=== PATIENT | female | born 1935 | race Caucasian/White ===

== ENCOUNTER → 2017-03-24 | Outpatient (CLI) | payer BC ==
[~2017-03-24] MED LIST: ACET-1311 PO; ASPCH81 PO; FSM70 PO; RSTOPS OP; SIMV20TA2 PO
--- NOTE | 2017-03-26 08:12 | MAMMOGRAPHY REPORT ---
BILATERAL DIGITAL SCREENING MAMMOGRAM TOMOSYNTHESIS WITH CAD: 03/24/2017 CLINICAL HISTORY: Routine screening. Patient has no complaints. TECHNIQUE: Breast tomosynthesis in addition to standard 2D mammography was performed. Current study was also evaluated with a Computer Aided Detection (CAD) system. COMPARISON: Comparison is made to exams dated: 03/23/2016 mammogram, 09/18/2015 ultrasound, 09/18/2015 mammogram, 03/14/2015 mammogram, 02/28/2015 mammogram, and 02/28/2015 ultrasound - [facility]. BREAST COMPOSITION: There are scattered areas of fibroglandular density in both breasts. FINDINGS: There is a possible area of architectural distortion in the lower inner middle one third o f the left breast for which additional spot compression tomosynthesis views and possible ultrasound a re recommended. There are mild vascular calcifications and a few scattered benign punctate and coarse calcifications in the breasts. No other suspicious mass, architectural distortion or cluster of microcalcifications is seen. IMPRESSION: ACR BI-RADS CATEGORY 0: INCOMPLETE EVALUATION: NEED ADDITIONAL IMAGING EVALUATION The possible area of architectural distortion in the lower inner left breast needs additional evaluat ion. The patient will be called to schedule an appointment. Approximately 10% of breast cancers are not detected with mammography. A negative mammographic report should not delay biopsy if a clinically suggestive mass is present. Yasmeen Maddox M.D. ay/:03/24/2017 15:34:56 Hall Supervisor: Melody Arauz, [facility] letter sent: Addl Imaging 0 BI-RADS Code: ACR BI-RADS Category 0: Incomplete Evaluation: Need Additional Imaging Evaluation
== END | disposition home or self-care (01) ==
LOC: C.MAMM 08:15
PROVIDERS: ATTEND Family Medicine
DX: Z12.31 Encounter for screening mammogram for malignant neoplasm of breast (principal)

== ENCOUNTER → 2017-04-06 | Outpatient (CLI) | payer BC ==
--- NOTE | 2017-04-06 14:26 | MAMMOGRAPHY REPORT ---
UNILATERAL LEFT DIGITAL DIAGNOSTIC MAMMOGRAM TOMOSYNTHESIS AND TARGETED LEFT ULTRASOUND: 04/06/2017 CLINICAL HISTORY: 81-year-old woman called back from screening mammography for possible area of archi tectural distortion in the left breast. TECHNIQUE: Spot compression left CC and MLO tomosynthesis images were obtained. COMPARISON: Comparison is made to exams dated: 03/24/2017 mammogram, 03/23/2016 mammogram, 09/18/2015 ultrasound, 09/18/2015 mammogram, 03/14/2015 mammogram, and 02/28/2015 mammogram - [facility]. BREAST COMPOSITION: There are scattered areas of fibroglandular density in the left breast. FINDINGS: The additional spot compression views of the left breast demonstrate no definite persistent architectural distortion in the area of concern based on the screening mammograms. There are multip le linear markings in the middle one third of the left breast along the posterior nipple line and in the medial aspect of the breast near the inferior aspect of the breast based on the tomosynthesis loc alizer bar. However, this is simply thought to represent the patient's tissue pattern, as the appear ance is somewhat similar to the 2016 CC tomosynthesis images. No definite persistent distortion is i dentified on the spot compression MLO tomosynthesis images and the 2-D parenchymal pattern appears si milar to multiple prior 2-D mammograms. Targeted ultrasound was performed throughout the inferior left breast. A small hypoechoic area of sh adowing is identified in the 6:00 left breast, 2 cm from the nipple in the radial plane, which efface s in the anti-radial plane and may simply represent normal fibrocartilage are tissue. No suspicious solid or cystic mass is definitely identified on ultrasound. IMPRESSION: ACR-BI-RADS CATEGORY 3: PROBABLY BENIGN, TARGETED ULTRASOUND ACR-BI-RADS CATEGORY 3: PRO BABLY BENIGN No definite persistent architectural distortion in the middle one third of the left breast, with supp lemental tomosynthesis spot compression views. The area of concern may simply represent overlapping fibrolinear markings. No definite suspicious sonographic correlate. Given the subtle and vague natu re of these findings, a short interval follow-up left diagnostic tomosynthesis mammogram and repeat u ltrasound is recommended to ensure stability in 6 months. These results and recommendations were discussed with the patient at the time of the exam. She tenta tively scheduled a follow-up appointment prior to leaving our department. Approximately 10% of breast cancers are not detected with mammography. A negative mammographic report should not delay biopsy if a clinically suggestive mass is present. Yasmeen Maddox M.D. ay/:04/06/2017 12:29:19 Substance Abuse Prevention Coordinator: Melody Arauz, [facility] letter sent: Follow Up Recommended 3 BI-RADS Code: ACR-BI-RADS Category 3: Probably Benign Ultrasound BI-RADS: ACR-BI-RADS Category 3: Pr obably Benign
== END | disposition home or self-care (01) ==
LOC: C.MAMM 11:17
PROVIDERS: ATTEND Family Medicine
DX: R92.8 Other abnormal and inconclusive findings on diagnostic imaging of breast (principal); N64.89 Other specified disorders of breast

== ENCOUNTER → 2017-04-12 | Outpatient (CLI) | payer BC ==
--- NOTE | 2017-04-12 12:37 | DIAGNOSTIC IMAGING REPORT ---
SOFT TISS HEAD/NECK-THYROID HISTORY: Mass. Nodule. MASS COMPARISON: 05/28/2010 FINDINGS: Ultrasonic evaluation of the left neck and survey fashion is performed at the patient's declared site of clinically palpable nodularity. No evidence for mass or collection based on ultrasound characteristics. No abnormal adenopathy. IMPRESSION: Normal ultrasound of the left neck at the site of stated nodularity. No evidence for nodule mass or collection based on ultrasound criteria. The above report was generated using voice recognition software. It may contain grammatical, syntax or spelling errors. Electronically signed by: Fito Bliss M.D. 04/12/2017 12:36 PM Dictated Date/Time: 04/12/2017 12:34 PM
== END | disposition home or self-care (01) ==
LOC: C.ULTR 12:04
PROVIDERS: ATTEND Family Medicine
DX: R22.1 Localized swelling, mass and lump, neck (principal)

== ENCOUNTER → 2017-05-13 | Outpatient (CLI) | payer BC | END | disposition home or self-care (01) | LOC: C.MAMM 14:58 | PROVIDERS: ATTEND Family Medicine | DX: M81.0 Age-related osteoporosis without current pathological fracture (principal); M85.89 Other specified disorders of bone density and structure, multiple sites ==

== ENCOUNTER 2021-01-29 08:31 | Observation (INO) ==
--- NOTE | 2021-01-07 17:07 | PAT Medication Instructions ---
Medication Instructions Date of Service January 07, 2021 Home Medications alendronate 70 mg tablet 70 mg PO WK ascorbic acid (vitamin C) 1,000 mg tablet (Vitamin C) 1,000 mg PO BID cyclosporine 0.05 % eye drops in a dropperette (Restasis) 1 drp OPHTHALMIC (EYE) Q12H meloxicam 7.5 mg tablet 7.5 mg PO HS multivitamin 1 tab PO QAM simvastatin 20 mg tablet 20 mg PO HS coenzyme Q10 100 mg capsule 100 mg PO QAM amitriptyline 10 mg tablet 10 mg PO HS biotin 5,000 mcg sublingual tablet 5,000 mcg SUBLINGUAL QAM calcium-mag oxide-vitamin D3 250 mg-125 mg-200 unit capsule 1 cap PO QAM cholecalciferol (vitamin D3) 25 mcg (1,000 unit) tablet (Vitamin D3) 25 mcg PO QAM jzjbcnod-dlk-xvzarf 5 mg-zeaxanth 1 mg-bilberry 7.5 mg-herbal capsule (Macular Health Formula) 1 cap PO QAM omega-3s 667 gs-iot-vgy-fish oil-vitamin D3 250 unit capsule (Dry Eye [place] Benefits) 1 cap PO QAM trospium 60 mg capsule,extended release 24 hr 60 mg PO HS zinc 50 mg tablet 50 mg PO QAM Continue as directed alendronate 70 mg tablet 70 mg PO WK (just do not take morning of surgery) ASK your surgeon for instructions meloxicam 7.5 mg tablet 7.5 mg PO HS STOP taking 2 weeks before surgery coenzyme Q10 100 mg capsule 100 mg PO QAM biotin 5,000 mcg sublingual tablet 5,000 mcg SUBLINGUAL QAM zexuquul-zfr-uqdjda 5 mg-zeaxanth 1 mg-bilberry 7.5 mg-herbal capsule (Macular Health Formula) 1 cap PO QAM omega-3s 667 of-lql-bfn-fish oil-vitamin D3 250 unit capsule (Dry Eye [place] Benefits) 1 cap PO QAM DO NOT take the morning of surgery ascorbic acid (vitamin C) 1,000 mg tablet (Vitamin C) 1,000 mg PO BID multivitamin 1 tab PO QAM calcium-mag oxide-vitamin D3 250 mg-125 mg-200 unit capsule 1 cap PO QAM cholecalciferol (vitamin D3) 25 mcg (1,000 unit) tablet (Vitamin D3) 25 mcg PO QAM zinc 50 mg tablet 50 mg PO QAM Take morning of surgery OTHERWISE NOTHING TO EAT OR DRINK AFTER MIDNIGHT: cyclosporine 0.05 % eye drops in a dropperette (Restasis) 1 drp OPHTHALMIC (EYE) Q12H Take evening before surgery ascorbic acid (vitamin C) 1,000 mg tablet (Vitamin C) 1,000 mg PO BID cyclosporine 0.05 % eye drops in a dropperette (Restasis) 1 drp OPHTHALMIC (EYE) Q12H simvastatin 20 mg tablet 20 mg PO HS amitriptyline 10 mg tablet 10 mg PO HS trospium 60 mg capsule,extended release 24 hr 60 mg PO HS Other Notes If you have any questions please call us at [phone] or [phone] or [phone] or [phone]
--- NOTE | 2021-01-09 14:53 | Anesthesiology Consultation ---
Date of Service January 09, 2021 Assessment & Plan (1) Encounter for pre-operative examination: - COVID screening: Per assessment on 01/09: Travel screen negative, no known COVID-19 positive contacts or current COVID-19 related symptoms. Patient vacci nated. Surgeon arranging preop COVID testing. Awaiting results. - S/P Open ventral hernia repair (01/18/20): Grade view 1, MAC#3, ETT 7.0 at [facility] - S/P Right inguinal hernia repair (09/05/20): LMA#4 unique at [facility] Chart Review Chart Review: Acceptable Risk for Surgery (pending surgeon-ordered PCP clearance) and Patient seen in Pre Admission Testing Teaching & Discussion Pre-Anesthesia Teaching/Discussion Notes: Instructed NPO after midnight before surgery,except medications with 15 cc of water. Medication instructions provided according to the PAT guidelines. History Surgery Operation Date: 01/29/21 07:00 Proposed Procedures p Right Total Knee Arthroplasty - Collin Rivera MD Height/Weight Height: 5 ft 3 in Weight: 52.4 kg Allergies Allergy/AdvReac Type Severity Reaction Status Date / Time hydromorphone AdvReac Intermediate "Knocked Verified 01/03/21 15:06 me out" morphine AdvReac Intermediate "Knocked Verified 01/03/21 15:06 me out" Adhesive Tape Allergy Mild Skin Uncoded 01/03/21 15:06 redness Medications Home Medications Medication Instructions Recorded Confirmed Last Taken alendronate 70 mg tablet 70 mg PO WK 12/19/19 01/03/21 09/02/20 07:00 ascorbic acid (vitamin C) 1,000 mg 1,000 mg PO BID 12/19/19 01/03/21 09/04/20 18:00 tablet (Vitamin C) cyclosporine 0.05 % eye drops in a 1 drp OPHTHALMIC (EYE) Q12H 12/19/19 01/03/21 09/05/20 05:00 dropperette (Restasis) meloxicam 7.5 mg tablet 7.5 mg PO HS 12/19/19 01/03/21 09/04/20 07:00 multivitamin 1 tab PO QAM 12/19/19 01/03/21 09/04/20 07:00 simvastatin 20 mg tablet 20 mg PO HS 12/19/19 01/03/21 09/04/20 18:00 coenzyme Q10 100 mg capsule 100 mg PO [facility] 09/05/20 01/03/21 09/04/20 07:00 amitriptyline 10 mg tablet 10 mg PO 01/03/21 01/03/21 Unknown biotin 5,000 mcg sublingual tablet 5,000 mcg SUBLINGUAL QA 01/03/21 01/03/21 Unknown calcium-mag oxide-vitamin D3 250 1 cap PO QA 01/03/21 01/03/21 Unknown mg-125 mg-200 unit capsule cholecalciferol (vitamin D3) 25 25 mcg PO QAM 01/03/21 01/03/21 Unknown mcg (1,000 unit) tablet (Vitamin D3) omjlzjju-exp-lyouqr 5 mg-zeaxanth 1 cap PO [facility] 01/03/21 01/03/21 Unknown 1 mg-bilberry 7.5 mg-herbal capsule (Macular Health Formula) omega-3s 667 ih-vmx-xhq-fish 1 cap PO QA 01/03/21 01/03/21 Unknown oil-vitamin D3 250 unit capsule (Dry Eye [place] Benefits) trospium 60 mg capsule,extended 60 mg PO 01/03/21 01/03/21 Unknown release 24 hr zinc 50 mg tablet 50 mg PO [facility] 01/03/21 01/03/21 Unknown Past Medical History Medical History History of skin cancer s/p removal HTN (hypertension) Controlled off meds, under surveillance Hyperlipidemia Osteoarthritis Osteoporosis Urge incontinence Exercise / Class Metabolic Activity II 4-5 Yardwork/Stairs/Walk up hill (one FS (no CP, no SOB)) Past Family History Family History Father Skin cancer Heart disease Other No family history of adverse response to anesthesia Past Surgical History Surgical History H/O ventral hernia repair Open ventral hernia repair (01/18/20): Grade view 1, MAC#3, ETT 7.0 at [facility] History of benign breast biopsy History of tonsillectomy History of tooth extraction Hx of cataract surgery R/L Hx of colonoscopy S/P right inguinal hernia repair (09/05/20) Right inguinal hernia repair (09/05/20): LMA#4 unique at [facility] Past Anesthesia History No Family Hx of Anesthesia Complications and Other ("slow to wake" ) History of PONV No Hx of PONV and No Hx of Motion Sickness Social History Smoking Status: Never smoker Do You Dip or Chew Tobacco: No Hx Alcohol Use: Yes Alcohol type: wine alcohol intake frequency: a few times a week Hx Substance Use: No substance use type: does not use Review of Systems Patient denies chest pain, shortness of breath, dyspnea on exertion, fever, chills, cough, wheezing, palpitations. Physical Exam Vital Signs VITALS BP 170/75 P 89 TEMP 98.4 SP02 98%RA RESP 18 PHYSICAL Full cervical extension range of motion. Full TMJ range of motion. TMD 3.5 finger breaths Mallampati Score 3 Dentition: intact Lungs: clear throughout to auscultation Cardiac: regular rate and rhythm, no murmurs noted Spine: kyphoscoliosis Carotid arteries: negative bruit Extremities: no edema Lab Results Anesthesia Preop Results Results Anesthesia Widget: WBC 5.17 K/uL (4.8-10.8) 01/09/21 Hgb 13.1 g/dL (12.0-16.0) 01/09/21 Hct 39.4 % (37-47) 01/09/21 Plt 186 K/uL (130-400) 01/09/21 Na 138 mmol/L (136-145) 01/09/21 K 3.8 mmol/L (3.5-5.1) 01/09/21 Cl 102 mmol/L (98-107) 01/09/21 CO2 31 mmol/L (21-32) 01/09/21 BUN 14 mg/dl (7-18) 01/09/21 Creat 0.74 mg/dl (0.6-1.2) 01/09/21 Glucose Level 89 mg/dl (70-99) 01/09/21 PT 10.3 Seconds (9.0-12.0) 01/09/21 PTT 25.8 Seconds (21.0-31.0) 01/09/21 INR 1.0 (0.9-1.1) 01/09/21 Urine Color Yellow 01/09/21 Urine Appearance Clear (Clear) 01/09/21 Urine pH 6.5 (4.5-7.5) 01/09/21 Urine Specific [place] 1.013 (1.000-1.030) 01/09/21 Urine Protein Negative (Negative) 01/09/21 Urine Glucose (UA) Negative (Negative) 01/09/21 Urine Ketones Negative (Negative) 01/09/21 Urine Blood Negative (Negative) 01/09/21 Urine Nitrite Negative (Negative) 01/09/21 Urine Bilirubin Negative (Negative) 01/09/21 Urine Urobilinogen Negative (Negative) 01/09/21 Urine Leukocyte Esterase Negative (Negative) 01/09/21 Blood Type A Positive 01/09/21 Antibody Screen NEGATIVE 01/09/21 Testing Electrocardiogram Date: 01/09/21 SR with PACs at 77bpm. LAD. NS STA. unconfirmed report. Chest X-Ray Date: 01/09/21 FINDINGS: No pneumothorax. No pleural effusion. No large infiltrates or consolidative lesions are seen. Lung volumes are increased. Cardiomediastinal silhouette is within upper limits of normal. No significant pulmonary vascular congestion.. Aorta is calcified. Osseous structures: Multilevel degenerative changes of the spine. Exaggerated thoracic kyphosis and anterior wedging of the multiple thoracic vertebral bodies. Partially healed fracture of the posterior aspect of the left third rib. IMPRESSION: COPD pattern. No large infiltrates or consolidative lesions. Cardiac silhouette is within upper limits of normal. Atherosclerosis.
--- NOTE | 2021-01-15 09:23 | History & Physical Report ---
Date of Service January 15, 2021 Assessment & Plan (1) Right knee DJD: Plan: Postoperative prescriptions for pain medication and Coumadin will be provided at discharge from the hospital. Anticipate discharge to a assisted facility. This is her preference. Preoperative lab work, EKG, and chest x-ray were ordered for today. She will also obtain COVID-19 nasal swab testing 2 days prior to surgery. She is aware of the COVID-19 risks associated with surgery. She is currently asymptomatic of any COVID-19 symptoms. PDMP was checked and there are no concerning findings. She already has access to a walker and cane. The patient has her PCP visit for medical clearance scheduled for 01/15/2021. History of Present Illness Chief Complaint: Right knee pain Primary Care Provider: Erin Ho DO This 85-year-old female presents for her preoperative history and physical. She is scheduled to undergo a right knee total knee arthroplasty on 01/29/2021. The patient has a longstanding history of right knee pain. Symptoms have been ongoing for greater than 2 years. It has become worse with time. She is now having pain with activities of daily living. There is pain associated with standing and walking. Occasional night pain. She has tried conservative care measures without improvement. She now elects to proceed with surgical intervention in hopes of improving her function and pain control. Preoperative imaging has been obtained today. She denies any numbness or tingling. Allergies Allergy/AdvReac Type Severity Reaction Status Date / Time hydromorphone AdvReac Intermediate "Knocked Verified 01/14/21 15:51 me out" morphine AdvReac Intermediate "Knocked Verified 01/14/21 15:51 me out" Adhesive Tape Allergy Mild Skin Uncoded 01/14/21 15:51 redness Home Medications Medication Instructions Recorded Confirmed Type alendronate 70 mg tablet 70 mg PO WK 12/19/19 01/14/21 History ascorbic acid (vitamin C) 1,000 mg 1,000 mg PO BID 12/19/19 01/14/21 History tablet (Vitamin C) cyclosporine 0.05 % eye drops in a 1 drp OPHTHALMIC (EYE) Q12H 12/19/19 01/14/21 History dropperette (Restasis) meloxicam 7.5 mg tablet 7.5 mg PO HS 12/19/19 01/14/21 History multivitamin 1 tab PO QAM 12/19/19 01/14/21 History simvastatin 20 mg tablet 20 mg PO HS 12/19/19 01/14/21 History coenzyme Q10 100 mg capsule 100 mg PO QAM 09/05/20 01/14/21 History amitriptyline 10 mg tablet 10 mg PO HS 01/03/21 01/14/21 History biotin 5,000 mcg sublingual tablet 5,000 mcg SUBLINGUAL QAM 01/03/21 01/14/21 History calcium-mag oxide-vitamin D3 250 1 cap PO QAM 01/03/21 01/14/21 History mg-125 mg-200 unit capsule cholecalciferol (vitamin D3) 25 25 mcg PO QAM 01/03/21 01/14/21 History mcg (1,000 unit) tablet (Vitamin D3) ceieajno-ekl-xritdz 5 mg-zeaxanth 1 cap PO QAM 01/03/21 01/14/21 History 1 mg-bilberry 7.5 mg-herbal capsule (Macular Health Formula) omega-3s 667 ij-nff-kpx-fish 1 cap PO QAM 01/03/21 01/14/21 History oil-vitamin D3 250 unit capsule (Dry Eye [place] Benefits) trospium 60 mg capsule,extended 60 mg PO HS 01/03/21 01/14/21 History release 24 hr zinc 50 mg tablet 50 mg PO QAM 01/03/21 01/14/21 History Past Med/Surg History Medical History History of skin cancer s/p removal HTN (hypertension) Controlled off meds, under surveillance Hyperlipidemia Osteoarthritis Osteoporosis Urge incontinence Surgical History H/O ventral hernia repair Open ventral hernia repair (01/18/20): Grade view 1, MAC#3, ETT 7.0 at [facility] History of benign breast biopsy History of tonsillectomy History of tooth extraction Hx of cataract surgery R/L Hx of colonoscopy S/P right inguinal hernia repair (09/05/20) Right inguinal hernia repair (09/05/20): LMA#4 unique at [facility] Family History Father Skin cancer Heart disease Other No family history of adverse response to anesthesia Osteoarthritis Osteoporosis Social History Smoking Status: Never smoker Second Hand Exposure: No; Hx Alcohol Use: Yes Alcohol type: wine Hx Substance Use: No Preferred Language: Scottish Communication Ability: Effective [employer] School Registrar Required: No Beliefs That Will Affect Care: None marital status: / Current Living Situation: Family Current Living Situation Comment: dtr and son in law live with pt current occupational status: retired How many Children do You have: 2 Feels Safe at Home: Yes Assistive Devices: Glasses Review of Systems Review of Systems: All systems reviewed & are unremarkable except as noted in HPI & below A total of 10 systems were reviewed. Physical Exam Physical Exam: Vitals: Height 158 cm, weight 52.6 kilograms, BMI 21.1, temperature 36.6, BP 126/78, pulse 82, O2 sat 100% on room air. General: Well-developed, well-nourished, elderly white female in no acute distress. Sitting in a chair. Alert and oriented. Skin: Warm and dry with fair turgor. No rashes or lesions. There is some thickening about her right knee, but no intraarticular effusion. No ecchymosis or erythema. The patient has varicosities in the lower extremities. HEENT: Normocephalic, atraumatic. Eyes: PERRLA, EOMI. Nares and oropharynx exams deferred due to COVID precautions. Heart: RRR with occasional PVCs. No gallops or rubs. Lungs: Clear to auscultation bilaterally. No crackles, rhonchi or wheezing. Good air movement. Abdomen: Bowel sounds present x4, soft, nontender. No organomegaly. No masses. Musculoskeletal: Right knee evaluation reveals varus positioning. She has focal discomfort with palpation over the anterior and lateral joint lines. No pain medially. Stable collateral ligaments. No defect in the patellar tendon or quadriceps tendon. She has full terminal extension. Flexion to greater than 110 degrees. Strength is 5/5 with fair quad tone. Ambulates today with an antalgic gait. Neurologic: Gross sensation is intact across both lower extremities by soft touch. Peripheral pulses are 2+. Results & Data Results & Data ([place]) Diagnostic Findings Radiographic imaging obtained today of the knees was reviewed by me and read by radiology. She has end-stage DJD of the right knee that is severe within the lateral compartment. This has progressed since her last films. Those were done on 09/20/2019. Intra-articular loose bodies are present. Periarticular osteophytes and subchondral sclerosis are also evident. Code Status & VTE Plan VTE Prophylaxis Plan VTE Prophylaxis will be ordered: Yes
[~2021-01-29 08:31] MED LIST changes: -ACET-1311 PO; -ASPCH81 PO; +BUPIVACAINE 0.5 % 5 MG/1 ML PF 10ML VIAL ONE; -FSM70 PO; +LIDOCAINE 2%/EPINEPHRINE 1:200,000 20 ML SDV ONE; +LR 500ML BOLUS, THEN 15ML/HR IV SCH; +LR 60ML/HR IV SCH; +ROPIVACAINE 0.5% 5 MG/ML 30 ML VIAL ONE; +ROPIVACAINE 0.5% HCL/PF 150 MG, BUPIVACAINE 0.75% MPF 20 ML, EPINEPHrine 0.15 MG, Ketor... INFIL SCH; -RSTOPS OP; -SIMV20TA2 PO; +TRANEXAMIC ACID 1,000 MG **IV Pre-op IV SCH; +ceFAZolin 2000MG 2,000 MG/15 ML SYR IV SCH
--- NOTE | 2021-01-29 08:46 | History & Physical Bridge Note ---
Date of Service January 29, 2021 History & Physical Bridge Note I have examined the patient, reviewed the History & Physical and in the interval since the performance of the History & Physical I have noted the following changes of clinical significance:consent obtained/site verified/covid screen negative. no changes noted
[2021-01-29] MEDS ORDERED: MIDAZOLAM HCL 1 MG/ML 2ML VIAL ONE (09:59)
[2021-01-29] MEDS ORDERED: PROPOFOL IV EMULSION 10 MG/ML 20 ML VIAL IV ONE (10:12)
[2021-01-29] MEDS ORDERED: ORTHO JOINT ANESTHETIC ONE (11:00)
[2021-01-29] MEDS ORDERED: ONDANSETRON INJ 2 MG/ML 2 ML VIAL ONE (11:45)
[2021-01-29] MEDS ORDERED: fentaNYL citrate 100 MCG/2 ML VIAL IV PRN (12:07)
[2021-01-29] MEDS ORDERED: ePHEDrine sulfate 50 MG/ML AMP IV PRN (12:07)
[2021-01-29] MEDS ORDERED: ATROPINE SULFATE 0.1 MG/ML 10ML SYR IV PRN (12:07)
--- NOTE | 2021-01-29 12:42 | Post Operative Brief Note ---
Immediate Post Op Note v1 Date of Surgery January 29, 2021 Pre & Post Diagnosis Operation Date: 01/29/21 10:40 Pre-Op Diagnosis: Right Knee Degenerative Joint Disease Post-Op Diagnosis: Right Knee Degenerative Joint Disease I identified the patient and participated in the time-out.: Yes Procedure Operation Date: 01/29/21 10:40 Actual Procedures p Right Total Knee Arthroplasty(Right) - Collin Rivera MD Surgeon Collin Rivera MD Backside Grinder Noe/Rey Estimated Blood Loss 50 Findings Consistent with Post-Op Diagnosis
--- NOTE | 2021-01-29 12:53 | Operative Report ---
Post Operative Report Pre & Post Diagnosis Operation Date: 01/29/21 10:40 Pre-Op Diagnosis: Right Knee Degenerative Joint Disease Post-Op Diagnosis: Right Knee Degenerative Joint Disease I identified the patient and participated in the time-out.: Yes Procedure Operation Date: 01/29/21 10:40 Actual Procedures p Right Total Knee Arthroplasty(Right) - Collin Rivera MD Surgeon Radha Rivera Business Services Sales Representative Noe/Rey Estimated Blood Loss 50 Findings Consistent with Post-Op Diagnosis Right knee degenerative joint disease Specimens see Dr. Rivera note Description of Procedure Right total knee arthroplasty I attest to the content of the Intraoperative Record and any orders documented therein. Any exceptions are noted below. Supervising Physician Co-Signing Physician Notes Dr. Rivera
--- NOTE | 2021-01-29 12:55 | Operative Report ---
Post Operative Report Pre & Post Diagnosis Operation Date: 01/29/21 10:40 Pre-Op Diagnosis: Right Knee Degenerative Joint Disease Post-Op Diagnosis: Right Knee Degenerative Joint Disease I identified the patient and participated in the time-out.: Yes Procedure Operation Date: 01/29/21 10:40 Actual Procedures p Right Total Knee Arthroplasty(Right) - Collin Rivera MD Surgeon NICHELLE Rivera MD Teacher [employer] Felipe/Rey YI Estimated Blood Loss 50 Findings Consistent with Post-Op Diagnosis see operative report Specimens see operative report Drains none Complications none Disposition Accompanied Patient To Recovery: Yes Indications This 85-year-old female presented to the office with complaints of persisting right knee pain. She had tried conservative care measures without improvement. She elected to proceed with surgical intervention after being educated about potential risks and outcomes. Preoperative imaging was obtained. Description of Procedure Patient was administered a spinal anesthetic and then taken to the operating room where she was given sedation. She was prepped and draped in the usual sterile fashion. Please see Dr. Rivera's operative report for specifics of the procedure. I was present for the entire case from initial patient positioning through final wound closure. Assistance was provided in tissue retraction, hemostasis, trial implant placement, final implant placement, and final wound closure. Patient was taken to the recovery room in satisfactory condition. I attest to the content of the Intraoperative Record and any orders documented therein. Any exceptions are noted below.
--- NOTE | 2021-01-29 13:08 | Operative Report (OR) ---
DATE OF PROCEDURE: 01/29/2021 SURGEON: Collin Rivera MD. HYDROELECTRIC PLANT OPERATOR: Jed Wang MD. SECOND HYDROELECTRIC PLANT OPERATOR: Parmjit Le PA-C. PREOPERATIVE DIAGNOSES: Osteoarthritis with valgus deformity, right knee. POSTOPERATIVE DIAGNOSES: Osteoarthritis with valgus deformity, right knee. OPERATION PERFORMED: Cemented right total knee replacement. PERIOPERATIVE SITUATION: Medically cleared female with intractable right knee pain with valgus defor mity. She has failed conservative management over years, wants to proceed with surgical treatment. She understands the risks and consequences. DESCRIPTION OF PROCEDURE: The patient was appropriately identified, site verified, consent verified. Antibiotics were confirmed as being given. The right lower extremity was prepped and draped in the usual routine fashion. Tourniquet was inflated to 275 mmHg after exsanguination of limb with a rubb er Esmarch bandage for a total of 51 minutes. Midline exposure was utilized. Parapatellar arthrotomy performed. Synovectomy completed, osteophyte s resected. Distal femur entered. Cruciates resected. Distal femur resected at 12 mm, proximal tib ia at 4 mm, the extension gap was excellent. Femur was sized to a 3, was measured 3 and there was no notching, etc. Flexion gap was checked, it was excellent. A box cut made and a size 3 fit well. T he size 3 tibia was then broached and reamed into the tibia. The 10 spacer provided excellent stabil ity in mid range and full extension. The patella tracked well. The patella was resected leaving 14 mm. Trial button 41 was seated and tracked well. All trial elements were then removed. The wound irrigated with Betadine and Pulsavac, the permanent cemented in position -- tibia, femur, and patella in that order. At 14 minutes, the knee was then re inspected after the tourniquet was deflated at 12 minutes and there was no major bleeding encountered . Minor bleeding points were controlled with electrocautery. Minor cement removal required. The wo und was irrigated with Betadine and Pulsavac, and then the permanent liner seated and the knee flexed at 30 degrees and closed with #2 Vicryl, 2-0 Vicryl and stainless steel clips. Appropriate dressing applied. The patient was transferred to recovery room in satisfactory condition, having tolerated t he procedure well. ESTIMATED BLOOD LOSS: Roughly 50 mL. CRYSTALLOID: Per anesthesia. DVT prophylaxis per protocol. Pathology pending on bone. SUMMARY OF IMPLANTS: Size 3 rotating platform knee with a size 3 right femur, size 3 mobile bearing tray, 3 x 10 mm insert with posterior cruciate substituting and a 41 patella. Two bags of Palacos G cement. Job ID: [id number]
--- NOTE | 2021-01-29 13:16 | XRay Report ---
XR knee RT 1 or 2V routine HISTORY: 85 years-old Female S/P R TKA right knee total joint arthroplasty COMPARISON: 01/09/2021 TECHNIQUE: 2 views of the right knee FINDINGS: Right knee total joint arthroplasty with patellar resurfacing. Anterior midline skin lucille are note d along with postoperative soft tissue swelling and deep tissue air. No acute fracture, malalignment or unexpected opaque foreign body. Arterial calcifications. IMPRESSION: Right knee total joint arthroplasty with expected postoperative changes. ACT 112: Negative or not required by law. The above report was generated using voice recognition software. It may contain grammatical, syntax o r spelling errors. Electronically signed by: Catrachito Ratliff M.D. 01/29/2021 1:15 PM
--- NOTE | 2021-01-29 13:17 | Progress Notes ---
DATE OF SERVICE: 01/29/2021 Postop check status post right total knee replacement. The patient is doing well. Denies any chest pain, shortness of breath, fever, chills, nausea, vomiting or headache. VITAL SIGNS: Stable. She is afebrile. Neurovascular check is limited by spinal. Postoperative x-rays look excellent. ASSESSMENT: Overall, doing well status post right total knee replacement. Continue with postoperati ve care pathway and discharge to home tomorrow versus [facility] based on her desires a nd bed availability. Discussed in detail with her daughter. Job ID: [id number]
--- NOTE | 2021-01-29 13:24 | Discharge Summary (DS) ---
DATE OF ADMISSION: 01/29/2021 DATE OF POTENTIAL DISCHARGE: 01/30/2021 CHIEF COMPLAINT: Right knee pain. HISTORY OF PRESENT ILLNESS: The patient underwent elective right total knee replacement. [facility] has been uneventful to date. Her postop x-rays look excellent. HOME MEDICATIONS: Preadmission included alendronate, vitamins, cyclosporine eye drops, meloxicam, mul tivitamin, simvastatin, amitriptyline, biotin, calcium, mag oxide, vitamin D, cholecalciferol, vitami n D3, multivitamin, omega-3, trospium 60 mg extended release capsule and zinc supplementation. PAST MEDICAL HISTORY: Remarkable for skin cancer, hypertension, hyperlipidemia, osteoarthritis, oste oporosis, and urinary incontinence. PAST SURGICAL HISTORY: Remarkable for ventral hernia repair, breast biopsy, tonsillectomy, tooth ext raction, cataract surgery, colonoscopies, hernia repairs. FAMILY HISTORY: Remarkable for skin cancer, heart disease. SOCIAL HISTORY: Reveals that she does not smoke. She drinks wine. She lives with her daughter and son-in-law. She is retired. REVIEW OF SYSTEMS: Noncontributory. Postop x-rays look excellent. ASSESSMENT: Doing well status post right total knee replacement. Continue postoperative care pathwa y. Discharge to home tomorrow with case management arrangement of services versus [facility] based on bed availability. Job ID: [id number]
--- NOTE | 2021-01-29 13:58 | Anesthesiology Progress Note ---
Date of Service January 29, 2021 Anesthesia Post Procedure Vital Signs Vital Signs: Temp Pulse Pulse Resp BP Pulse Ox 01/29/21 13:55 71 19 150/74 H 100 01/29/21 13:40 70 13 149/80 H 99 01/29/21 13:30 36.9 C 74 20 149/74 H 100 01/29/21 13:20 73 19 142/64 H 98 01/29/21 13:10 70 17 128/66 98 01/29/21 13:00 73 18 124/60 99 01/29/21 12:52 36.5 C 75 17 113/52 L 99 01/29/21 09:01 36.4 C L 83 20 148/71 H 100 Transfer of Care Handoff Completed per policy Notes Mental Status: alert / awake / arousable and participated in evaluation Patient Amnestic to Procedure: Yes Nausea / Vomiting: adequately controlled Pain: adequately controlled Airway Patency, RR, SpO2: stable & adequate BP & HR: stable & adequate Hydration State: stable & adequate Neuraxial Anesthesia: was administered and sensory block is resolving Anesthetic Complications: no major complications apparent
[2021-01-29] MEDS ORDERED: ALUMINUM/MAGNESIUM SUSP 30 ML UDC PO PRN (17:10)
[2021-01-29] MEDS ORDERED: NALOXONE HCL 0.4 MG/1 ML VIAL/CARP IV PRN (17:10)
[2021-01-29] MEDS ORDERED: oxyCODONE HCL IR 5 MG TAB (IMMEDIATE RELEASE) PO PRN (17:10)
[2021-01-29] MEDS ORDERED: METOCLOPRAMIDE HCL INJ 5 MG/ML 2 ML VIAL IV PRN (17:10)
[2021-01-29] MEDS ORDERED: bisacodyL 10 MG SUPP PR PRN (17:10)
[2021-01-29] MEDS ORDERED: ONDANSETRON INJ 2 MG/ML 2 ML VIAL IV PRN (17:10)
[2021-01-29] MEDS ORDERED: MAGNESIUM HYDROXIDE SUSP 30 ML UDC PO PRN (17:10)
[2021-01-29] MEDS ORDERED: diphenhydrAMINE 50 MG/ML VIAL IV PRN (17:10)
[2021-01-29] MEDS ORDERED: INFLUENZA VACCINE HIGH DOSE PF 65+ 0.7 ML SYR IM ONE (17:30)
[2021-01-29] MEDS: SODIUM CHLORIDE 0.9% 1000ML 1,000 ML IV SCH (17:55)
[2021-01-29] MEDS: ceFAZolin 2000MG 2,000 MG/15 ML SYR IV SCH (18:00)
[2021-01-29] MEDS: KETOROLAC TROMETHAMINE 15 MG/ML VIAL IV SCH ×2 (18:03→23:28)
[2021-01-29] MEDS: ACETAMINOPHEN 500 MG TAB PO SCH ×2 (18:07→20:47)
[2021-01-29] MEDS: ORTHO WARFARIN NOMOGRAM SCH (18:22)
[2021-01-29] MEDS ORDERED: WARFARIN SOD 5 MG TAB PO SCH (18:30)
[2021-01-29] MEDS: ASCORBIC ACID 500 MG TAB PO SCH (18:38)
[2021-01-29] MEDS: FERROUS GLUCONATE 324 MG TAB PO SCH (18:38)
[2021-01-29] MEDS ORDERED: TRANEXAMIC ACID / 0.7% NACL 1,000 MG/100 ML BAG IV SCH (19:00)
[2021-01-29] MEDS: DOCUSATE SODIUM 100 MG CAP PO SCH (20:47)
[2021-01-29] MEDS ORDERED: AMITRIPTYLINE HCL 10 MG TAB PO SCH (21:00)
[2021-01-29] MEDS ORDERED: SIMVASTATIN 20 MG TAB PO SCH (21:00)
[2021-01-29] MEDS ORDERED: SENNA 8.6 MG TAB PO SCH (21:00)
[2021-01-30] MEDS: *RESTASIS*ORDER AWAITING ACTION SCH ×2 (00:11→07:51)
[2021-01-30] MEDS: ceFAZolin 2000MG 2,000 MG/15 ML SYR IV SCH (03:50)
[2021-01-30] MEDS: SODIUM CHLORIDE 0.9% 1000ML 1,000 ML IV SCH (03:51)
[2021-01-30] MEDS: ACETAMINOPHEN 500 MG TAB PO SCH (05:40)
[2021-01-30] MEDS: KETOROLAC TROMETHAMINE 15 MG/ML VIAL IV SCH ×2 (05:40→11:44)
--- NOTE | 2021-01-30 06:44 | Progress Notes ---
SUBJECTIVE: Postop check status post right total knee replacement. The patient is doing well. Joe es chest pain, shortness of breath, fever, chills, nausea, vomiting or headache. OBJECTIVE: Vital signs are stable. She is afebrile. Neurovascular check, femoral sciatic nerve is within normal limits. Can do a straight leg raise. Can do ankle pumps. Wound dressing clean, dry and intact. LABORATORY DATA: A.m. labs pending. ASSESSMENT AND PLAN: Doing well. Discharged home today. We will need urgent case management appoin tmecrystal since she was not seen yesterday to get her home today. Job ID: [id number]
[2021-01-30 07:33] LABS: Hematocrit (blood only) 33.1 % (37-47); Mean Corpuscular Hgb Conc 33.2 g/dL (32-36); Mean Corpuscular Volume 99.4 fL (80-100); Mean Platelet Volume 10.7 fL (7.4-10.4); Platelet Count 152 K/uL (130-400); RDW Coefficient of Variation 12.8 % (11.5-14.5); RDW Standard Deviation 46.9 fL (36.4-46.3); Red Blood Count 3.33 M/uL (4.2-5.4); White Blood Count 9.56 K/uL (4.8-10.8)
[2021-01-30 07:48] LABS: INR 1.2 (0.9-1.1); Prothrombin Time 11.7 Seconds (9.0-12.0)
[2021-01-30] MEDS ORDERED: dexAMETHasone 10 MG in SYRINGE 0 ML IV SCH (08:00)
[2021-01-30 08:07] LABS: BUN Creatinine Ratio 18.2 (10-20); Calcium 8.4 mg/dl (8.5-10.1); Creatinine Clr Calc Pharmacy 45.7 ml/min; Est GFR (African American) 90.7 ml/min; Est GFR (Non-African American) 78.3 ml/min; Potassium 3.8 mmol/L (3.5-5.1)
[2021-01-30] MEDS ORDERED: MULTIVITAMIN TAB PO SCH (09:00)
[2021-01-30] MEDS: FERROUS GLUCONATE 324 MG TAB PO SCH (09:33)
[2021-01-30] MEDS: ASCORBIC ACID 500 MG TAB PO SCH (09:33)
[2021-01-30] MEDS: DOCUSATE SODIUM 100 MG CAP PO SCH (09:33)
--- NOTE | 2021-01-30 10:03 | Orthopedic Progress Note ---
Date of Service January 30, 2021 Assessment & Plan (1) Status post total right knee replacement using cement: Plan: Patient's dressings were changed today by me. WILDA hose was reapplied. Continue with ice and elevation frequently to reduce pain and swelling. Timothy stuart using her walker for ambulation. Follow-up with me in the office in 2 weeks as scheduled for staple removal. She will be discharged to home today with home health services. Continue Coumadin 2 mg daily through the weekend and have her blood rechecked on Wednesday. Start PT next week. Maximum flexion of 90 degrees. She will use her knee immobilizer for support and protection today and tomorrow, and can discontinue use on Wednesday. Admission and Anticipated Discharge Date Admission Date: January 29, 2021 Subjective Patient was seen in her room this morning. States she did not sleep well. She states there were too many interruptions and it was not as comfortable as her own bed. Otherwise, she has no other complaints. Denies any chest pain, shortness of breath, nausea, vomiting, or abdominal pain. She has very little knee pain at this point. She feels ready for discharge to home. She decided against going to a halfway facility and would like to be discharged to home with home health services instead. Review of Systems Review of Systems: Unchanged from yesterday. Physical Exam Physical Exam: General: Well-developed, well-nourished, elderly female, in no acute distress. Sitting in bed eating breakfast. Alert and oriented. Conversive. Skin: Postsurgical dressings are in place. Upon removal, there is scant dried drainage on the inner dressings. There is no active bleeding. Wound edges are well approximated. Velasquez are in place. Expected postoperative edema. No ecchymosis. Warm and dry with good turgor. No rashes or lesions. The patient is not diaphoretic. No abrasions. Musculoskeletal: Gross motor function of the right leg is intact. She is able to perform straight leg raise. She has full terminal extension. Flexion to greater than 45 degrees. Intact motor function of the ankle and toes. Neurologic: Gross sensation is intact across both lower extremities by soft touch. Peripheral pulses are 2+. Results & Data ([facility]) Vital Signs (Past 12 Hours) Vital Signs Temp Pulse Resp BP Pulse Ox 01/30/21 07:02 36.8 C 77 16 144/77 H 99 09/30/21 02:35 36.6 C 74 16 137/73 96 01/29/21 22:10 36.8 C 69 16 108/66 96 Laboratory Results Labs this morning show WBCs at 9.56. Hemoglobin 11.0, hematocrit 33.1, platelets 152,000, INR 1.2, sodium 137, potassium 3.8, chloride 104, BUN 13, creatinine 0.69, glucose 89
[2021-01-30] MEDS ORDERED: WARFARIN SOD 5 MG TAB PO ONE (10:15)
[2021-01-30] MEDS: ORTHO WARFARIN NOMOGRAM SCH (10:38)
== END 2021-01-30 14:53 | disposition home health service (06) ==
LOC: ASU 08:31 → PACUINP 08:31 → 3E 17:00

== ENCOUNTER 2021-06-19 07:46 | Observation (INO) ==
--- NOTE | 2021-05-22 11:20 | PAT Medication Instructions ---
Medication Instructions Date of Service May 22, 2021 Home Medications Medication Instructions Recorded trospium 60 mg capsule,extended 60 mg PO HS #90 cap 03/13/21 release 24 hr alendronate 70 mg tablet 70 mg PO WK ascorbic acid (vitamin C) 1,000 mg tablet (Vitamin C) 1,000 mg PO BID cyclosporine 0.05 % eye drops in a dropperette (Restasis) 1 drp OPHTHALMIC (EYE) QAM multivitamin 1 tab PO QAM simvastatin 20 mg tablet 20 mg PO HS amitriptyline 10 mg tablet 10 mg PO HS biotin 5,000 mcg sublingual tablet 5,000 mcg SUBLINGUAL QAM calcium-mag oxide-vitamin D3 250 mg-125 mg-200 unit capsule 1 cap PO QAM cholecalciferol (vitamin D3) 25 mcg (1,000 unit) tablet (Vitamin D3) 25 mcg PO QAM [id number] 5 mg-zeaxanth 1 mg-bilberry 7.5 mg-herbal capsule (Macular Health Formula) 1 cap PO QAM zinc 50 mg tablet 50 mg PO QAM trospium 60 mg capsule,extended release 24 hr 60 mg PO HS acetaminophen 500 mg tablet (Acetaminophen Extra Strength) 500 mg PO Q6H PRN Heathers Tummy Break 1 dose PO BID Continue as directed alendronate 70 mg tablet 70 mg PO WK (do not take morning of surgery) STOP taking 2 weeks before surgery biotin 5,000 mcg sublingual tablet 5,000 mcg SUBLINGUAL QAM [id number] 5 mg-zeaxanth 1 mg-bilberry 7.5 mg-herbal capsule (Macular Health Formula) 1 cap PO QAM Heathers Tummy Break 1 dose PO BID DO NOT take the morning of surgery ascorbic acid (vitamin C) 1,000 mg tablet (Vitamin C) 1,000 mg PO BID multivitamin 1 tab PO QAM calcium-mag oxide-vitamin D3 250 mg-125 mg-200 unit capsule 1 cap PO QAM cholecalciferol (vitamin D3) 25 mcg (1,000 unit) tablet (Vitamin D3) 25 mcg PO QAM zinc 50 mg tablet 50 mg PO QAM Take morning of surgery With a small sip of water, OTHERWISE NOTHING TO EAT OR DRINK AFTER MIDNIGHT: cyclosporine 0.05 % eye drops in a dropperette (Restasis) 1 drp OPHTHALMIC (EYE) QAM acetaminophen 500 mg tablet (Acetaminophen Extra Strength) 500 mg PO Q6H PRN (okay to take up to 4 hours prior to surgery if needed) Take evening before surgery ascorbic acid (vitamin C) 1,000 mg tablet (Vitamin C) 1,000 mg PO BID simvastatin 20 mg tablet 20 mg PO HS amitriptyline 10 mg tablet 10 mg PO HS trospium 60 mg capsule,extended release 24 hr 60 mg PO HS acetaminophen 500 mg tablet (Acetaminophen Extra Strength) 500 mg PO Q6H PRN(if needed) Other Notes If you have any questions please call us at [phone] or [phone] or [phone] or [phone]
--- NOTE | 2021-05-27 14:42 | Anesthesiology Consultation ---
Date of Service May 27, 2021 Assessment & Plan (1) Encounter for pre-operative examination: - neurology office visit 01/14/2021 [place]: "...Tremor: subtle right hand tremor, possibly very early parkinsonism but no signs of parkinsonism at this time. We will continue to monitor and follow-up. Right upper extremity weakness secondary to right rotator cuff tear and severe arthritis: Does have weakness on exam that would be consistent with her known right rotator cuff tear and pain causing weakness secondary to underlying osteoarthritic changes. Agree with having surgery in the near future to help with this followed by physical therapy to help with weakness. No clear underlying neuropathy or plexopathy from her examination to explain symptoms otherwise...Return to clinic in 1 year or sooner if needed to follow-up tremor..." - Outpatient joint assessment: Patient is currently scheduled for inpatient pathway. If re-evaluated pending system levels during current pandemic/surgeon requests outpatient pathway, patient is not recommended candidate for outpatient joint program from anesthesia standpoint. - COVID screening: Per assessment on 05/27/2021: Travel screen negative, no known COVID-19 positive contacts or current COVID-19 related symptoms in past 2 weeks. Patient vaccinated. Surgeon arranging preop COVID testing, scheduled 06/16/2021. Awaiting results. Chart Review Chart Review: Acceptable Risk for Surgery and Patient seen in Pre Admission Testing Teaching & Discussion Pre-Anesthesia Teaching/Discussion Notes: Instructed NPO after midnight before surgery, except medications with 15 cc of water. Medication instructions provided according to the PAT guidelines. History Surgery Operation Date: 06/19/21 09:20 Proposed Procedures p Right Open Total Shoulder Arthroplasty Bernardo - Juan Ramon Gonzalez MD Height/Weight Height: 5 ft 2 in Weight: 49.8 kg Allergies Allergy/AdvReac Type Severity Reaction Status Date / Time hydromorphone AdvReac Intermediate "Knocked Verified 05/15/21 11:21 me out" morphine AdvReac Intermediate "Knocked Verified 05/15/21 11:21 me out" adhesive tape AdvReac Mild Skin Verified 05/15/21 11:21 redness Medications Home Medications Medication Instructions Recorded Confirmed Last Taken alendronate 70 mg tablet 70 mg PO WK 12/19/19 05/15/21 03/24/21 ascorbic acid (vitamin C) 1,000 mg 1,000 mg PO BID 12/19/19 05/15/2103/27/21 tablet (Vitamin C) cyclosporine 0.05 % eye drops in a 1 drp OPHTHALMIC (EYE) [facility] 12/19/19 05/15/21 03/27/21 dropperette (Restasis) multivitamin 1 tab PO QAM 12/19/19 05/15/21 03/27/21 simvastatin 20 mg tablet 20 mg PO HS 12/19/19 05/15/21 03/26/21 amitriptyline 10 mg tablet 10 mg PO HS 01/03/21 05/15/21 03/26/21 biotin 5,000 mcg sublingual tablet 5,000 mcg SUBLINGUAL QA 01/03/21 05/15/21 03/27/21 calcium-mag oxide-vitamin D3 250 1 cap PO [facility] 01/03/21 05/15/21 03/27/21 mg-125 mg-200 unit capsule cholecalciferol (vitamin D3) 25 25 mcg PO [facility] 01/03/21 05/15/21 03/27/21 mcg (1,000 unit) tablet (Vitamin D3) [id number]-dbn-ndmoja 5 mg-zeaxanth 1 cap PO [facility] 01/03/21 05/15/21 03/27/21 1 mg-bilberry 7.5 mg-herbal capsule (Macular Health Formula) zinc 50 mg tablet 50 mg PO [facility] 01/03/21 05/15/21 03/27/21 trospium 60 mg capsule,extended 60 mg PO HS #90 cap 03/13/21 05/15/21 03/26/21 release 24 hr acetaminophen 500 mg tablet 500 mg PO Q6H PRN 03/27/21 05/15/21 03/27/21 (Acetaminophen Extra Strength) 1000 mg Heathers Tummy Break 1 dose PO BID 05/15/21 05/15/21 Unknown Past Medical History Medical History (Updated 05/27/21 @ 14:57 by Christy Wells PA-C) History of skin cancer s/p removal-face, arms and right lower leg HTN (hypertension) Controlled off meds, under surveillance Hyperlipidemia Osteoarthritis Osteoporosis Slow to wake up after anesthesia Tremor Urge incontinence Patient denies h/o stroke, seizures, heart attack, heart failure, DM, blood clots or blood transfusions. Exercise / Class Metabolic Activity II 4-5 Yardwork/Stairs/Walk up hill (denies CP or SOB with 1 FOS) Past Family History Family History Father Skin cancer Heart disease Other No family history of adverse response to anesthesia Osteoarthritis Osteoporosis Past Surgical History Surgical History H/O ventral hernia repair Open ventral hernia repair (01/18/20): Grade view 1, MAC#3, ETT 7.0 at [facility]. No issues per anesthesia postop progress note. History of benign breast biopsy History of right knee joint replacement 01/29/2021: SAB at L3-L4, 2 attempts + PNB. No issues per anesthesia postop progress note. History of tonsillectomy History of tooth extraction Hx of cataract surgery R/L Hx of colonoscopy S/P right inguinal hernia repair Right inguinal hernia repair (09/05/20): LMA#4 unique at [facility]. No issues per anesthesia postop progress note. Past Anesthesia History No Family Hx of Anesthesia Complications and Other (slow to wake) History of PONV No Hx of PONV and No Hx of Motion Sickness Social History Smoking Status: Never smoker Do You Dip or Chew Tobacco: No Hx Alcohol Use: Yes Alcohol type: wine alcohol intake frequency: a few times a week Hx Substance Use: No substance use type: does not use Review of Systems Patient denies chest pain, shortness of breath, dyspnea on exertion, snoring, witnessed apneas, reflux, fever, chills, cough, wheezing, or palpitations. Physical Exam Vital Signs Vitals BP 128/80 P 77 TEMP 98.3 SP02 99% on RA RESP 17 Physical Full cervical extension range of motion without pain Full TMJ range of motion TMD 3 finger breaths Mallampati Score 2 Dentition: intact, she reports recent dental repair within recent weeks, unsure of details; denies chipped or loose teeth (She was advised to notify surgeon's office regarding recent dental work, she verbalized understanding and denied questions or concerns) Lungs: normal respiratory effort. Clear throughout to auscultation, no adventitious breath sounds Cardiac: regular rate and rhythm, no murmurs noted Carotid arteries: negative bruit bilat Extremities: no distal extremity edema Lab Results Anesthesia Preop Results Results Anesthesia Widget: WBC 4.18 K/uL (4.8-10.8) L 05/27/21 Hgb 12.7 g/dL (12.0-16.0) 05/27/21 Hct 40.0 % (37-47) 05/27/21 Plt 183 K/uL (130-400) 05/27/21 Na 139 mmol/L (136-145) 05/27/21 K 4.2 mmol/L (3.5-5.1) 05/27/21 Cl 101 mmol/L (98-107) 05/27/21 CO2 32 mmol/L (21-32) 05/27/21 BUN 16 mg/dl (6-23) 05/27/21 Creat 0.67 mg/dl (0.6-1.2) 05/27/21 Glucose Level 96 mg/dl (70-99(Fasting)) 05/27/21 PT 10.3 Seconds (9.0-12.0) 05/27/21 PTT 25.3 Seconds (21.0-31.0) 05/27/21 INR 1.0 (0.9-1.1) 05/27/21 HA1c 5.4 % (4.5-5.6) 05/27/21 Urine Color Yellow 05/27/21 Urine Appearance Clear (Clear) 05/27/21 Urine pH 7.0 (4.5-7.5) 05/27/21 Urine Specific Mark 1.011 (1.000-1.030) 05/27/21 Urine Protein Negative (Negative) 05/27/21 Urine Glucose (UA) Negative (Negative) 05/27/21 Urine Ketones Negative (Negative) 05/27/21 Urine Blood Negative (Negative) 05/27/21 Urine Nitrite Negative (Negative) 05/27/21 Urine Bilirubin Negative (Negative) 05/27/21 Urine Urobilinogen Negative (Negative) 05/27/21 Urine Leukocyte Esterase Negative (Negative) 05/27/21 Blood Type A Positive 05/27/21 Antibody Screen NEGATIVE 05/27/21 Testing Electrocardiogram Date: 01/09/21 Sinus rhythm with PACs, rate 77 bpm Left axis deviation Nonspecific ST abnormality Chest X-Ray Date: 05/27/21 FINDINGS: PA and lateral chest radiographs are compared to study dated 01/09/2021. Correlation is made with chest CT dated 03/22/2011. The heart is enlarged noting atherosclerotic calcification of the thoracic aorta. The pulmonary vasculature is noncongested. Chronic interstitial thickening is similar to previous. The lungs and pleural spaces are otherwise clear. There is no pneumothorax. The skeletal structures are osteopenic. The bony thorax appears intact. Degenerative change and hyperkyphosis is noted in the thoracic spine. Advanced arthritic change is seen in the shoulder. IMPRESSION: Cardiomegaly with no active disease in the chest.
--- NOTE | 2021-05-30 08:56 | History & Physical Report ---
Date of Service May 30, 2021 Assessment & Plan (1) Primary osteoarthritis, right shoulder: Plan: PRE-OP Diagnosis: Right shoulder osteoarthritis Planned Procedure: Reverse right total shoulder arthroplasty Plan: Patient is scheduled to undergo this procedure at the [facility] with Dr. Juan Ramon Gonzalez on June 19, 2021. Risks and complications of the procedure such as: Infection, bleeding, pain, scarring, nerve blood vessel damage, weakness, wound problems, stiffness, incomplete relief of symptoms, hardware failure, hardware loosening, wear, fracture, tendon or ligament injury, blood clots, embolism, heart attack, stroke and were explained the patient today, however informed consent to perform the procedure will not be obtained until Dr. Gonzalez is present on the morning of surgery. Patient also understands risks of proceeding with surgical intervention during the COVID-19 pandemic. Currently she is asymptomatic and understands that she will need to be tested prior to surgery. Patient is scheduled to meet with heydi hadley later on this afternoon and while there she will obtain a CBC with differential, complete metabolic panel, PT/INR, blood type and screen, urinalysis, urine culture and sensitivity, EKG, hemoglobin A1c and a nasal culture for MRSA. Patient states she is scheduled to see her primary care provider Dr. Ho on June 03 for preoperative medical clearance. I also provided patient with an order to obtain a CT skin of her right shoulder for preoperative planning. During today's visit we reviewed the packet in regards to joint replacement surgery. I discussed watching videos offered by [facility] via zoom on their website in regards to joint replacement surgery. I advised her that she will be kept overnight for 23-hour observation and before discharge I will prescribe her an opioid analgesic for postoperative pain control, and anti-inflammatory medication and we would like her to be on a baby aspirin twice daily for blood clot prevention for the first 30 days p ostoperatively. I also advised her that she can supplement for pain control with extra Tylenol. I will place all these instructions in her discharge packet. Patient will begin outpatient physical therapy on Wednesday following surgery. She will be scheduled to see me for 2-week postoperative follow-up on July 04 at 1:30 PM. Patient verbalized understanding of all information provided during today's visit. She thanks for the care that she received. She has questions or concerns that should arise prior to her surgery, she will contact the clinic. History of Present Illness Chief Complaint: Chief Complaint: Right shoulder pain Primary Care Provider: Erin Ho DO History of Present Illness (including history relevant to procedure): This 86-year-old female presents the clinic today for her preoperative history and physical. Patient states in the last year the shoulder had worsened significantly. She had a total knee replacement done by Dr. Rivera 9 weeks ago and says that the pain she is experiencing in her shoulder now is way worse than it was even in her knee before surgery. It bothers her quite a bit at nighttime. It is affecting her activities of daily living. She only used a walker for a couple days after her knee replacement. Does not feel like this aggravated things. She thinks it was getting worse even before that. Review Of Systems: A 12 point review of systems is performed and is unremarkable except for those things stated in the HPI and past medical history. 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 small knee effusion2. mild to moderate osteoarthritis within the right knee whic has progressed at the lateral compartment Mammogram 05/05/2019 - IMPRESSION: Subtle left breast architectural distortion is not significantly changed compared to multiple prior exams and is considered benign and likelu represents postsurgical chnages from remote surgical excision. There is no mammographic evidence of malignancy in either breast. A 1 year screening mammogram is recommended. Shave biopsy and cauterization of skin 04/20/2019 Mammogram 03/29/2018 - Possible focal area of architectural distortion in the lower inner middle one third of the left breast needs additional imaging evaluation. Mammogram 10/06/2017 - 6mo f/u L Bone density scan 05/13/2017 Colon cancer screening 05/09/2017 - cologard was negative Mammogram 04/06/2017 - US 6 mo interval. Shave biopsy of skin lesion 01/20/2017 Electrodesiccation with curettage 08/06/2016 Shave biopsy 07/20/2016 Mammogram 03/23/2016 Excision 01/21/2016 Shave biopsy of skin 12/26/2015 Bone density scan 06/11/2015 Mammogram 02/28/2015 Ultrasound 02/28/2015 - ultrasound of right breast mammogram 01/20/2013 Allergies and Sensitivities: Dilaudid(muscle weakness) morphine(muscle weakness) Adhesive bandage(blisters, erythema) Social history: Patient states that she drinks approximately 4 alcoholic beverages per week. She denies tobacco or illicit drug use. Family history:Arthritis: Father, Mother Heart attack: Father Heart disease: Father Osteoporosis: Mother Skin cancer: Father Stroke: Mother TIA: Father Current Home Meds: (Last Updated 05/27 13:35) acetaminophen 325 mg PO q4h prn - G Sechrist 12/25 15:05 alendronate (alendronate 70 mg oral tablet) TAKE 1 TABLET BY MOUTH ONCE WEEKLY amitriptyline (amitriptyline 25 mg oral tablet) TAKE 1 TABLET BY MOUTH AT BEDTIME FOR 30 DAYS amoxicillin (amoxicillin 500 mg oral capsule) 2,000 mg PO As indicated one hour before dental and other procedures as directed ascorbic acid (Vitamin C) 1,000 mg PO Daily 6 tab daily bifidobacterium-lactobacillus (Probiotic Formula) devin biotin (biotin 5000 mcg oral capsule) 1 po daily cholecalciferol (Vitamin D3 1000 intl units (25 mcg) oral capsule) 25 mcg PO Daily cycloSPORINE ophthalmic (Restasis 0.05% ophthalmic emulsion) 1 drop both eyes q12h docusate (Colace) meloxicam (meloxicam 7.5 mg oral tablet) TAKE 2 TABLETS BY MOUTH ONCE DAILY multivitamin with minerals (Macular Health) 1 tab PO Daily omega-3 polyunsaturated fatty acids (D[place] Benefits 667 mg oral capsule) 4 tab PO Daily simvastatin (simvastatin 20 mg oral tablet) TAKE 1 TABLET BY MOUTH AT BEDTIME trospium (Sanctura XR 60 mg oral capsule, extended release) 60 mg PO qAM ubiquinone (Co-Q10 100 mg oral capsule) 100 mg PO Daily unknown medication (coral ca w/ vit d & mg) 500 mg PO tid zinc acetate (zinc (as acetate) 50 mg oral capsule) 50 mg PO Daily Vitals: No Vital Signs Data Available Weights: Last Updated 05/27/21 13:36 Initial Wt: 05/27 48.0 kg 106 lb Studies (relevant to the procedure): MRI that was done back in August of this year is reviewed. Patient has a full-thickness rotator cuff tear with retraction of the glenoid as well as fluid within the subdeltoid space. X-rays of the patient's right shoulder show glenohumeral osteoarthritis CT scan results are pending Allergies Allergy/AdvReac Type Severity Reaction Status Date / Time hydromorphone AdvReac Intermediate "Knocked Verified 05/15/21 11:21 me out" morphine AdvReac Intermediate "Knocked Verified 05/15/21 11:21 me out" adhesive tape AdvReac Mild Skin Verified 05/15/21 11:21 redness Home Medications Medication Instructions Recorded Confirmed Type alendronate 70 mg tablet 70 mg PO WK 12/19/19 05/15/21 History ascorbic acid (vitamin C) 1,000 mg 1,000 mg PO BID 12/19/19 05/15/21 History tablet (Vitamin C) cyclosporine 0.05 % eye drops in a 1 drp OPHTHALMIC (EYE) QA 12/19/19 05/15/21 History dropperette (Restasis) multivitamin 1 tab PO QAM 12/19/19 05/15/21 History simvastatin 20 mg tablet 20 mg PO HS 12/19/19 05/15/21 History amitriptyline 10 mg tablet 10 mg PO HS 01/03/21 05/15/21 History biotin 5,000 mcg sublingual tablet 5,000 mcg SUBLINGUAL QA 01/03/21 05/15/21 History calcium-mag oxide-vitamin D3 250 1 cap PO QAM 01/03/21 05/15/21 History mg-125 mg-200 unit capsule cholecalciferol (vitamin D3) 25 25 mcg PO QAM 01/03/21 05/15/21 History mcg (1,000 unit) tablet (Vitamin D3) hhnoxraf-gys-cootqb 5 mg-zeaxanth 1 cap PO QAM 01/03/21 05/15/21 History 1 mg-bilberry 7.5 mg-herbal capsule (Macular Health Formula) zinc 50 mg tablet 50 mg PO QAM 01/03/21 05/15/21 History trospium 60 mg capsule,extended 60 mg PO HS #90 cap 11/11/21 01/13/22 Rx release 24 hr acetaminophen 500 mg tablet 500 mg PO Q6H PRN 03/27/21 05/15/21 History (Acetaminophen Extra Strength) [place]s Tummy Break 1 dose PO BID 05/15/21 05/15/21 History Past Med/Surg History Medical History History of skin cancer s/p removal-face, arms and right lower leg HTN (hypertension) Controlled off meds, under surveillance Hyperlipidemia Osteoarthritis Osteoporosis Slow to wake up after anesthesia Tremor Urge incontinence Surgical History H/O ventral hernia repair Open ventral hernia repair (01/18/20): Grade view 1, MAC#3, ETT 7.0 at [facility]. No issues per anesthesia postop progress note. History of benign breast biopsy History of right knee joint replacement 01/29/2021: SAB at L3-L4, 2 attempts + PNB. No issues per anesthesia postop progress note. History of tonsillectomy History of tooth extraction Hx of cataract surgery R/L Hx of colonoscopy S/P right inguinal hernia repair Right inguinal hernia repair (09/05/20): LMA#4 unique at [facility]. No issues per anesthesia postop progress note. Family History Father Skin cancer Heart disease Other No family history of adverse response to anesthesia Osteoarthritis Osteoporosis Social History Smoking Status: Never smoker Second Hand Exposure: No; Hx Alcohol Use: Yes Alcohol type: wine Hx Substance Use: No Preferred Language: Spanish Communication Ability: Effective Cardiac Cath Rn Required: No Beliefs That Will Affect Care: None marital status: / Current Living Situation: Family Current Living Situation Comment: dtr and son in law live with pt current occupational status: retired How many Children do You have: 1 Feels Safe at Home: Yes Assistive Devices: Glasses Review of Systems All systems reviewed & are unremarkable except as noted in Subjective Physical Exam Physical Exam: Physical Exam: (relevant to the procedure, including heart and lung evaluation) General: Alert and oriented x3 with proper grooming and hygiene Eyes: Pupils are equal and reactive to light with accommodation. Extraocular movements are intact Throat: Deferred due to COVID-19 precautions Cardiac: Regular rate and rhythm with no murmurs or gallops appreciated Lungs: Clear to auscultation throughout with no wheezing, rales or rhonchi Abdomen: Nonobese, nondistended, nontender with NABS Extremities: Right shoulder; forward flexion and abduction are limited to 80 degrees. Flexed elbow external rotation 0 degrees. Palpable crepitation with passive range of motion. Positive crossarm test. Referred pain with abducting internal and external rotation. Positive subscapularis liftoff test. Significant weakness with applied resistance while forward flexing or AB drafting. Patient is neurovascular intact in right upper extremity Neuro: Cranial nerves II through XII are intact no motor or sensory deficit Skin: Normal in appearance with no open skin areas or discharge
[~2021-06-19 07:46] MED LIST changes: +ACETAMINOPHEN 500 MG TAB PO SCH; +FAMOTIDINE 20 MG TAB PO SCH; -LIDOCAINE 2%/EPINEPHRINE 1:200,000 20 ML SDV ONE; +LR 15ML/HR IV SCH; -LR 500ML BOLUS, THEN 15ML/HR IV SCH; -ROPIVACAINE 0.5% 5 MG/ML 30 ML VIAL ONE; +Scopolamine 1 MG TDSY TD SCH; +TRANEXAMIC ACID 1,000 MG **IV Intra-op IV SCH; +dexAMETHasone 4 MG TAB PO SCH; +traMADol HCL 50 MG TABLET PO SCH
[2021-06-19] MEDS ORDERED: MIDAZOLAM HCL 1 MG/ML 2ML VIAL ONE (07:59)
[2021-06-19] MEDS ORDERED: fentaNYL citrate 100 MCG/2 ML VIAL ONE (07:59)
--- NOTE | 2021-06-19 08:33 | History & Physical Bridge Note ---
Date of Service June 19, 2021 History & Physical Bridge Note I have examined the patient, reviewed the History & Physical and in the interval since the performance of the History & Physical I have noted the following changes of clinical significance: no changes noted
[2021-06-19] MEDS ORDERED: ONDANSETRON INJ 2 MG/ML 2 ML VIAL ONE (11:07)
[2021-06-19] MEDS ORDERED: GLYCOPYRROLATE 0.2 MG/ML VIAL ONE (11:07)
[2021-06-19] MEDS ORDERED: NEOSTIGMINE METHYLSULFATE 1 MG/ML 10ML VIAL ONE (11:07)
[2021-06-19] MEDS ORDERED: PHENYLEPHRINE HCL 10 MG/ML VIAL ONE (11:07)
[2021-06-19] MEDS ORDERED: ROCURONIUM BROMIDE 10 MG/ML 5 ML VIAL IV ONE (11:07)
[2021-06-19] MEDS ORDERED: PROPOFOL IV EMULSION 10 MG/ML 20 ML VIAL IV ONE (11:07)
[2021-06-19] MEDS ORDERED: ePHEDrine sulfate 50 MG/ML SYR ONE (11:07)
--- NOTE | 2021-06-19 11:51 | Post Operative Brief Note ---
Immediate Post Op Note v1 Date of Surgery June 19, 2021 Pre & Post Diagnosis Operation Date: 06/19/21 09:10 Pre-Op Diagnosis: Right Shoulder Rotator Cuff tear Arthropathy Post-Op Diagnosis: Right Shoulder Rotator Cuff tear Arthropathy I identified the patient and participated in the time-out.: Yes Procedure Operation Date: 06/19/21 09:10 Actual Procedures p Right Reverse Total Shoulder Arthroplasty(Right) - Juan Ramon Gonzalez MD Surgeon Juan Ramon Gonzalez MD Circus Trainer STANLEY Monsalve PA-C. No resident or fellow was available to assist Estimated Blood Loss 50 Findings Consistent with Post-Op Diagnosis Drains Hemovac Drain Anesthesia Type General Regional Complications Brief pulselessness attributable to hypotension, resolved with epinephrine Disposition Disposition: Recovery Room
[2021-06-19] MEDS ORDERED: MAGNESIUM HYDROXIDE SUSP 30 ML UDC PO PRN (12:08)
[2021-06-19] MEDS ORDERED: bisacodyL 10 MG SUPP PR PRN (12:08)
[2021-06-19] MEDS ORDERED: NALOXONE HCL 0.4 MG/1 ML VIAL/CARP IV PRN (12:08)
[2021-06-19] MEDS ORDERED: traMADol HCL 50 MG TABLET PO PRN (12:08)
[2021-06-19] MEDS ORDERED: HYDROmorphone INJ 0.5 MG/0.5 ML SYR IV PRN (12:08)
[2021-06-19] MEDS ORDERED: METOCLOPRAMIDE HCL INJ 5 MG/ML 2 ML VIAL IV PRN (12:08)
[2021-06-19] MEDS ORDERED: diphenhydrAMINE 50 MG/ML VIAL IV PRN (12:08)
[2021-06-19] MEDS ORDERED: ONDANSETRON INJ 2 MG/ML 2 ML VIAL IV PRN (12:08)
[2021-06-19] MEDS ORDERED: ALUMINUM/MAGNESIUM SUSP 30 ML UDC PO PRN (12:08)
--- NOTE | 2021-06-19 12:08 | Operative Report ---
Post Operative Report Pre & Post Diagnosis Operation Date: 06/19/21 09:10 Pre-Op Diagnosis: Right Shoulder Arthropathy Post-Op Diagnosis: Right Shoulder Arthropathy I identified the patient and participated in the time-out.: Yes Procedure Operation Date: 06/19/21 09:10 Actual Procedures p Right Reverse Total Shoulder Arthroplasty(Right) - Juan Ramon Gonzalez MD Surgeon Juan Ramon Gonzalez MD Welfare Case Worker STANLEY Monsalve PA-C. No resident or fellow was available to assist Estimated Blood Loss 50 Findings Consistent with Post-Op Diagnosis Specimens Right humeral head Description of Procedure I was present during the entire case assisting with positioning, prepping, draping, wound retraction, wound closure, drain placement, dressing and sling application. No fellow present. Please see Dr. Gonzalez procedure note for specifics. I attest to the content of the Intraoperative Record and any orders documented therein. Any exceptions are noted below.
[2021-06-19] MEDS ORDERED: ACETAMINOPHEN HOME PACK 500 MG TABLET PO PRN (12:14)
[2021-06-19] MEDS ORDERED: SODIUM CHLORIDE 0.9% 1000ML 1,000 ML IV SCH (12:15)
--- NOTE | 2021-06-19 13:01 | XRay Report ---
XR shoulder RT min 2V routine CLINICAL HISTORY: Post shoulder surgery. COMPARISON STUDY: 12/12/2019 TECHNIQUE: 2 right shoulder views FINDINGS: Bones: The patient is status post right total shoulder replacement with both humeral head and glenoid components. There is no evidence for an acute fracture or dislocation. There is no lytic or blastic lesion. Joints: The prosthetic components are in anatomic alignment with no gross evidence for loosening. The bones are in anatomic alignment. Soft tissues: There is no focal soft tissue abnormality. There is no radiopaque foreign body. IMPRESSION: 1. No acute osseous pathology. Status post right total shoulder replacement. ACT 112: Negative or not required by law. Electronically signed by: Eddy Sears M.D. 06/19/2021 12:59 PM
--- NOTE | 2021-06-19 13:36 | Operative Report (OR) ---
DATE OF SERVICE: 06/19/2021 PREOPERATIVE DIAGNOSES: Right rotator cuff tear, arthropathy. POSTOPERATIVE DIAGNOSES: Right rotator cuff tear, arthropathy. OPERATIONS PERFORMED: Right reverse total shoulder arthroplasty. SURGEON: Juan Ramon Gonzalez MD. CAPTAIN/AIRLINE PILOT SURGEON: Hoang Monsalve PA-C. No resident or fellow was available to assist. ESTIMATED BLOOD LOSS: 50 mL. SPECIMENS: Right humeral head. COMPLICATIONS: Brief pulselessness attributable to hypotension. This resolved with epinephrine. IMPLANTS: 1. Tornier 25 mm standard baseplate. 2. 6.5 x 25 mm central screw. 3. Two locking screws measuring 22 and 18 mm respectively. 4. Two nonlocking screws each measuring 14 mm. 5. 33 mm +3 lateralized glenosphere. 6. Size 4B Ascend Flex stem. 7. +6 high-offset stem. 8. 33 mm +6 reversed polyethylene insert. INDICATIONS: Ms. Xavier is an 86-year-old female, very active for her age, who has right rotator cuff tear arthropathy refractory to conservative management. This includes activity modification, non-steroidal anti-inflammatories, corticosteroid injections, and physical therapy. X-rays and MRI demonstrate a rotator cuff tear arthropathy. She has a type A2 glenoid. She has a large osteophyte noted in the posterior aspect of her shoulder. I had a long discussion with her about the risks and benefits of surgery, alternatives to surgery, and expected outcomes. After reviewing all these, she elected to proceed with surgery. All questions were answered, informed consent was signed. OPERATIVE FINDINGS: Reverse total shoulder arthroplasty was performed. We were able to remove the large ossicle in the posterior aspect of her shoulder. DESCRIPTION OF OPERATION: The patient was identified in the preoperative holding area where her surgical site was marked. She was given interscalene block with Exparel by anesthesia and brought back to the main operating room where she was placed on the operating room table and general anesthesia was administered. It should be noted that anesthesia placed an arterial line. She got 1 gram of tranexamic acid and IV antibiotics. We then moved her up into the modified beach chair position, about 45 degrees head of bed. As we were prepping her arm, however, her pressure dropped and she briefly lost her pulse. She was immediately given epinephrine by the anesthesia staff. Her head of bed was lowered down to about 30 degrees. Her pulse immediately returned. She was evaluated by Dr. Fuentes, college president. After discussion about the safety of proceeding, it was decided that we would proceed on with her surgery with extreme care and monitoring of her blood pressure, vital signs, and heart rhythm. The patient was then placed back into the 45 degree head of bed position. She tolerated this well with no further issues for the remainder of the case. Her shoulder was prepped and draped in the usual sterile fashion. Prior to incision, a multidisciplinary timeout was called. All in the room were in agreement. We began by making a 10 cm long incision from the inferior border of the clavicle along the deltopectoral groove. I dissected down to the subcutaneous tissues. Meticulous hemostasis was ensured. The cephalic vein was identified and retracted medially. Dissected underneath the deltoid. A Kolbel retractor was placed. Clavipectoral fascia was incised along the lateral border. There were a significant amount of adhesions to the undersurface of the conjoined tendon under the subscapularis. These were released bluntly as well as with electrocautery. There was a significant amount of bursal tissue overlying the anterior aspect of the shoulder that was excised with cautery. We then identified the biceps tendon. This was noted to have tenotomized and scarred into her intertubercular groove. We followed the surface of the biceps tendon up to the rotator interval with curved Marcus scissors. A subscapularis peel was then done with needle electrocautery. The humeral head was exposed. A humeral head osteotomy was performed. We then instrumented the canal of the humerus. Sounders were used and she sounded up to size 4. We broached her initially up to a size 3; however, after trialing, we upsized her to a 4 as the size 3 broach became slightly loose. The humeral head cut protector was placed. Fukuda retractor was placed. Our anterior and inferior capsular releases were performed taking great care to protect the axillary nerve. The glenoid was then exposed. A 3D printed guide was then placed on glenoid following our preoperative plan. The guidewire was placed in the center of the glenoid. We were happy with its position. Using a T-handle reamer, we then reamed for our baseplate. The central post drill was used followed by the drill for the central screw. This was measured to a length of 25 mm. Screws in the baseplate were opened up and were placed down into position. Osteophytes around the glenoid were then removed with a rongeur. The anterior and posterior non-locking screws were placed. The locking screws were then placed. Excellent fixation was obtained. At this point, the T-handle reamer was used to ream around the glenoid baseplate to ensure all the osteophytes were removed, so the glenosphere would sit down appropriately on the baseplate. This was confirmed. The 33 mm glenosphere with +3 lateralization was then impacted down on the baseplate. Excellent fixation was obtained. At this point, the humerus was re-exposed. We trialed initially with the low- offset tray. We decided to change to the high-offset tray with a +6 thickness to maintain the optimal length-tension relationship on her deltoid and for increased stability. After trialing, she had ability to fully crossarm adduct her arm. We could get her up to 125 degrees of forward elevation. At 90 degrees of abduction, she had 100 degrees of external rotation and 35 degrees of internal rotation. With the arm at the side, she had approximately 60 degrees of external rotation. I was very happy with this exam. We therefore removed the humeral head trial components. The humeral canal was irrigated out. The real components were opened up in the back table and assembled. Humeral canal was dried and the implant was placed in the same position as the trial. The shoulder was relocated. We then began to close. A Hemovac drain was placed in the subdeltoid space. The deltopectoral interval was closed with #2 Ethibond. The subscapularis was not repaired. 2-0 Vicryl was used for the deep dermal layer. 3-0 Monocryl was used for the skin. 4 x 4 and Tegaderm dressings were applied. The patient was then awoken from anesthesia and transferred to the recovery room in stable condition. POSTOPERATIVE COURSE: The patient will be admitted to telemetry overnight for monitoring. She will be in a sling for the next 2 weeks. We will plan on discharging her tomorrow. Aspirin for DVT prophylaxis. Job ID: [id number] [facility]
--- NOTE | 2021-06-19 13:46 | Anesthesiology Progress Note ---
Date of Service June 19, 2021 Anesthesia Post Procedure Vital Signs Vital Signs: Temp Pulse Pulse Resp BP Pulse Ox 06/19/21 13:15 60 21 115/60 115 H 06/19/21 13:05 62 22 115/60 96 06/19/21 12:55 36.5 C 61 20 118/60 98 06/19/21 12:45 60 15 115/68 98 06/19/21 12:35 59 L 16 125/69 99 06/19/21 12:25 60 19 125/68 99 06/19/21 12:15 59 L 18 118/67 100 06/19/21 12:08 36.2 C L 60 19 123/66 98 06/19/21 08:38 36.6 C 77 20 163/81 H 100 Transfer of Care Handoff Completed per policy Notes Mental Status: alert / awake / arousable Patient Amnestic to Procedure: Yes Nausea / Vomiting: adequately controlled Pain: adequately controlled Airway Patency, RR, SpO2: stable & adequate BP & HR: stable & adequate Hydration State: stable & adequate Anesthetic Complications: no major complications apparent
[2021-06-19] MEDS: ACETAMINOPHEN 500 MG TAB PO SCH ×2 (16:26→21:23)
[2021-06-19] MEDS: RESTASIS-ORDER AWAITING ACTION SCH ×2 (17:15→23:04)
[2021-06-19] MEDS: Scopolamine CHECK PATCH PLACEMENT SCH ×2 (17:26→23:04)
[2021-06-19] MEDS ORDERED: TRANEXAMIC ACID / 0.7% NACL 1,000 MG/100 ML BAG IV SCH (18:15)
[2021-06-19] MEDS: KETOROLAC TROMETHAMINE 15 MG/ML VIAL IV SCH (18:25)
[2021-06-19] MEDS: ceFAZolin 2000MG 2,000 MG/15 ML SYR IV SCH (18:25)
[2021-06-19] MEDS: ASCORBIC ACID 500 MG TAB PO SCH (20:07)
[2021-06-19] MEDS: DOCUSATE SODIUM 100 MG CAP PO SCH (20:08)
[2021-06-19] MEDS ORDERED: SIMVASTATIN 20 MG TAB PO SCH (21:00)
[2021-06-19] MEDS ORDERED: AMITRIPTYLINE HCL 10 MG TAB PO SCH (21:00)
[2021-06-19] MEDS ORDERED: [UNRECOGNIZED DRUG - REMARK] PO SCH (21:00)
[2021-06-19] MEDS ORDERED: SENNA 8.6 MG TAB PO SCH (21:00)
[2021-06-20] MEDS: KETOROLAC TROMETHAMINE 15 MG/ML VIAL IV SCH ×2 (00:23→06:03)
[2021-06-20] MEDS: ceFAZolin 2000MG 2,000 MG/15 ML SYR IV SCH (01:48)
[2021-06-20] MEDS: ACETAMINOPHEN 500 MG TAB PO SCH (06:03)
[2021-06-20] MEDS ORDERED: dexAMETHasone 4 MG TAB PO SCH (08:00)
[2021-06-20] MEDS: DOCUSATE SODIUM 100 MG CAP PO SCH (08:30)
[2021-06-20] MEDS: ASCORBIC ACID 500 MG TAB PO SCH (08:31)
[2021-06-20] MEDS: RESTASIS-ORDER AWAITING ACTION SCH (08:33)
[2021-06-20] MEDS: Scopolamine CHECK PATCH PLACEMENT SCH (08:33)
[2021-06-20 08:37] LABS: Basophils # (auto) 0.01 K/uL (0-0.2); Basophils % (auto) 0.1 %; Hematocrit (blood only) 37.8 % (37-47); Hemoglobin 12.7 g/dL (12.0-16.0); Immature Granulocytes # (auto) 0.01 K/uL (0.00-0.02); Immature Granulocytes % (auto) 0.1 %; Lymphocytes # (auto) 1.92 K/uL (1.2-3.4); Lymphocytes % (auto) 22.1 %; Mean Corpuscular Hgb Conc 33.6 g/dL (32-36); Mean Corpuscular Volume 101.3 fL (80-100); Mean Platelet Volume 11.2 fL (7.4-10.4); Monocytes # (auto) 0.51 K/uL (0.11-0.59); Monocytes % (auto) 5.9 %; Neutrophils # (auto) 6.23 K/uL (1.4-6.5); Neutrophils % (auto) 71.8 %; Platelet Count 157 K/uL (130-400); RDW Coefficient of Variation 13.5 % (11.5-14.5); RDW Standard Deviation 50.4 fL (36.4-46.3); Red Blood Count 3.73 M/uL (4.2-5.4); White Blood Count 8.68 K/uL (4.8-10.8)
[2021-06-20] MEDS ORDERED: MULTIVITAMIN TAB PO SCH (09:00)
[2021-06-20] MEDS ORDERED: NON-FORMULARY MEDICATION (Mv-Mn-Lutein-Zeax-Bilber-Hb277 [Macular Health Formula] 5-1-7.5 PO SCH (09:00)
[2021-06-20] MEDS ORDERED: CHOLECALCIFEROL 1,000 UNITS 25 MCG TAB PO SCH (09:00)
[2021-06-20] MEDS ORDERED: [UNRECOGNIZED DRUG - OTHER] PO SCH (09:00)
[2021-06-20] MEDS ORDERED: ZINC SULFATE 220 MG CAPSULE PO SCH (09:00)
[2021-06-20] MEDS ORDERED: MAGNESIUM OXIDE PO SCH (09:00)
[2021-06-20] MEDS ORDERED: NON-FORMULARY MEDICATION (Multivitamin Tablet) PO SCH (09:00)
[2021-06-20] MEDS ORDERED: NON-FORMULARY MEDICATION (Biotin 5,000 mcg Tablet, Sublingual) SL SCH (09:00)
[2021-06-20] MEDS ORDERED: ASPIRIN 81 MG ECTAB PO SCH (09:00)
[2021-06-20] MEDS ORDERED: CALCIUM PO SCH (09:00)
[2021-06-20 09:07] LABS: BUN Creatinine Ratio 28.4 (10-20); Calcium 8.8 mg/dl (8.5-10.1); Creatinine Clr Calc Pharmacy 41.3 ml/min; Est GFR (African American) 83.8 ml/min; Est GFR (Non-African American) 72.3 ml/min; Potassium 4.4 mmol/L (3.5-5.1)
--- NOTE | 2021-06-20 10:02 | Orthopedic Progress Note ---
Date of Service June 20, 2021 Assessment & Plan (1) S/p reverse total shoulder arthroplasty: Plan: PT/OT Ice with easy wrap Arm sling Pain control p.o. medication DVT prophylaxis with WILDA stockings and aspirin In-home PT for the first 2 weeks postoperatively Follow-up with [facility] orthopedics as previously scheduled. With questions contact our clinic at [phone] Admission and Anticipated Discharge Date Admission Date: June 19, 2021 Subjective This 86-year-old female is day 1 status post reverse right total shoulder arthro plasty. Patient states she is doing very well. She states she has no pain. She denies any numbness or tingling in her hand. She denies chest pain, shortness breath, fever, chills, sweats, lethargy or fatigue. She denies nausea vomiting or diarrhea. Patient is very anxious and wishes to go home as soon as possible. Review of Systems Review of Systems: All systems reviewed & are unremarkable except as noted in Subjective Physical Exam Physical Exam: Right shoulder; postoperative dressings are clean dry and intact. Drain has a scant amount of bloody drainage. The drain was removed and a sterile 4 x 4 and Tegaderm were placed over the puncture site. Patient is able to reach terminal flexion extension in her right elbow. She has full range of motion of her wrist. Appropriate dexterity of her fingers. She is able to make complete fist. She is able to detect light sensation to touch over the pads of all digits. Peripheral pulses are 2+. Capillary fill is less than 2 seconds.Passive forward flexion of her shoulder to 45 degrees and abduction to 45 degrees causes no discomfort or pain. Results & Data ([facility]) Vital Signs (Past 12 Hours) Vital Signs Temp Pulse Pulse Pulse Resp BP Pulse Ox 06/20/21 07:40 36.8 C 65 16 110/72 98 06/20/21 07:16 65 06/20/21 06:37 36.7 C 62 18 107/68 92 06/20/21 03:20 36.9 C 66 18 105/63 98 06/20/21 00:39 66 06/19/21 22:06 36.6 C 73 18 121/74 96 Diagnostic Findings Laboratory Results WBC 8.68 K/uL (4.8-10.8) 06/20/21 08:12 RBC 3.73 M/uL (4.2-5.4) L 06/20/21 08:12 Hgb 12.7 g/dL (12.0-16.0) 06/20/21 08:12 Hct 37.8 % (37-47) 06/20/21 08:12 MCV 101.3 fL (80-100) H 06/20/21 08:12 MCH 34.0 pg (25-34) 06/20/21 08:12 MCHC 33.6 g/dL (32-36) 06/20/21 08:12 RDW Std Deviation 50.4 fL (36.4-46.3) H 06/20/21 08:12 RDW Coeff of Tiesha 13.5 % (11.5-14.5) 06/20/21 08:12 Plt Count 157 K/uL (130-400) 06/20/21 08:12 MPV 11.2 fL (7.4-10.4) H 06/20/21 08:12 Immature Gran % (Auto) 0.1 % 06/20/21 08:12 Neut % (Auto) 71.8 % 06/20/21 08:12 Lymph % (Auto) 22.1 % 06/20/21 08:12 [place] % (Auto) 5.9 % 06/20/21 08:12 Eos % (Auto) 0.0 % 06/20/21 08:12 Baso % (Auto) 0.1 % 06/20/21 08:12 Neut # (Auto) 6.23 K/uL (1.4-6.5) 06/20/21 08:12 Lymph # (Auto) 1.92 K/uL (1.2-3.4) 06/20/21 08:12 [place] # (Auto) 0.51 K/uL (0.11-0.59) 06/20/21 08:12 Eos # (Auto) 0.00 K/uL (0-0.5) 06/20/21 08:12 Baso # (Auto) 0.01 K/uL (0-0.2) 06/20/21 08:12 Immature Gran # (Auto) 0.01 K/uL (0.00-0.02) 06/20/21 08:12 Sodium 133 mmol/L (136-145) L 06/20/21 08:12 Potassium 4.4 mmol/L (3.5-5.1) 06/20/21 08:12 Chloride 100 mmol/L (98-107) 06/20/21 08:12 Carbon Dioxide 27 mmol/L (21-32) 06/20/21 08:12 Anion Gap 6 (3-11) 06/20/21 08:12 BUN 21 mg/dl (6-23) 06/20/21 08:12 Creatinine 0.74 mg/dl (0.6-1.2) 06/20/21 08:12 Est Cr Clr Drug Dosing 41.3 ml/min 06/20/21 08:12 Est GFR ( Amer) 83.8 ml/min 06/20/21 08:12 Est GFR (Non-Af Amer) 72.3 ml/min 06/20/21 08:12 BUN/Creatinine Ratio 28.4 (10-20) H 06/20/21 08:12 Glucose 106 mg/dl (70-99(Fasting)) H 06/20/21 08:12 Calcium 8.8 mg/dl (8.5-10.1) 06/20/21 08:12 SARS-CoV-2, RNA, NAAT NEGATIVE (NEGATIVE) 06/19/21 Unknown Impressions Shoulder X-Ray 06/19/21 12:08 XR shoulder RT min 2V routine CLINICAL HISTORY: Post shoulder surgery. COMPARISON STUDY: 12/12/2019 TECHNIQUE: 2 right shoulder views FINDINGS: Bones: The patient is status post right total shoulder replacement with both humeral head and glenoid components. There is no evidence for an acute fracture or dislocation. There is no lytic or blastic lesion. Joints: The prosthetic components are in anatomic alignment with no gross evidence for loosening. The bones are in anatomic alignment. Soft tissues: There is no focal soft tissue abnormality. There is no radiopaque foreign body. IMPRESSION: 1. No acute osseous pathology. Status post right total shoulder replacement. ACT 112: Negative or not required by law. Electronically signed by: Eddy Sears M.D. 06/19/2021 12:59 PM
--- NOTE | 2021-06-20 10:09 | Discharge Summary ---
Date of Service June 20, 2021 Admission HPI Per Admitting Provider History of Present Illness (including history relevant to procedure): This 86-year-old female presents the clinic today for her preoperative history and physical. Patient states in the last year the shoulder had worsened significantly. She had a total knee replacement done by Dr. Rivera 9 weeks ago and says that the pain she is experiencing in her shoulder now is way worse than it was even in her knee before surgery. It bothers her quite a bit at nighttime. It is affecting her activities of daily living. She only used a walker for a couple days after her knee replacement. Does not feel like this aggravated things. She thinks it was getting worse even before that. Review Of Systems: A 12 point review of systems is performed and is unremarkable except for those things stated in the HPI and past medical history. 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 small knee effusion2. mild to moderate osteoarthritis within the right knee whic has progressed at the lateral compartment Mammogram 05/05/2019 - IMPRESSION: Subtle left breast architectural distortion is not significantly changed compared to multiple prior exams and is considered benign and likelu represents postsurgical chnages from remote surgical excision. There is no mammographic evidence of malignancy in either breast. A 1 year screening mammogram is recommended. Shave biopsy and cauterization of skin 04/20/2019 Mammogram 03/29/2018 - Possible focal area of architectural distortion in the lower inner middle one third of the left breast needs additional imaging evaluation. Mammogram 10/06/2017 - 6mo f/u L Bone density scan 05/13/2017 Colon cancer screening 05/09/2017 - cologard was negative Mammogram 04/06/2017 - US 6 mo interval. Shave biopsy of skin lesion 01/20/2017 Electrodesiccation with curettage 08/06/2016 Shave biopsy 07/20/2016 Mammogram 03/23/2016 Excision 01/21/2016 Shave biopsy of skin 12/26/2015 Bone density scan 06/11/2015 Mammogram 02/28/2015 Ultrasound 02/28/2015 - ultrasound of right breast mammogram 01/20/2013 Allergies and Sensitivities: Dilaudid(muscle weakness) morphine(muscle weakness) Adhesive bandage(blisters, erythema) Social history: Patient states that she drinks approximately 4 alcoholic beverages per week. She denies tobacco or illicit drug use. Family history:Arthritis: Father, Mother Heart attack: Father Heart disease: Father Osteoporosis: Mother Skin cancer: Father Stroke: Mother TIA: Father Current Home Meds: (Last Updated 05/27 13:35) acetaminophen 325 mg PO q4h prn - G Sechrist 12/25 15:05 alendronate (alendronate 70 mg oral tablet) TAKE 1 TABLET BY MOUTH ONCE WEEKLY amitriptyline (amitriptyline 25 mg oral tablet) TAKE 1 TABLET BY MOUTH AT BEDTIME FOR 30 DAYS amoxicillin (amoxicillin 500 mg oral capsule) 2,000 mg PO As indicated one hour before dental and other procedures as directed ascorbic acid (Vitamin C) 1,000 mg PO Daily 6 tab daily bifidobacterium-lactobacillus (Probiotic Formula) alinettien biotin (biotin 5000 mcg oral capsule) 1 po daily cholecalciferol (Vitamin D3 1000 intl units (25 mcg) oral capsule) 25 mcg PO Daily cycloSPORINE ophthalmic (Restasis 0.05% ophthalmic emulsion) 1 drop both eyes q12h docusate (Colace) meloxicam (meloxicam 7.5 mg oral tablet) TAKE 2 TABLETS BY MOUTH ONCE DAILY multivitamin with minerals (Macular Health) 1 tab PO Daily omega-3 polyunsaturated fatty acids (Dry Eye Henefer Benefits 667 mg oral capsule) 4 tab PO Daily simvastatin (simvastatin 20 mg oral tablet) TAKE 1 TABLET BY MOUTH AT BEDTIME trospium (Sanctura XR 60 mg oral capsule, extended release) 60 mg PO qAM ubiquinone (Co-Q10 100 mg oral capsule) 100 mg PO Daily unknown medication (coral ca w/ vit d & mg) 500 mg PO tid zinc acetate (zinc (as acetate) 50 mg oral capsule) 50 mg PO Daily Vitals: No Vital Signs Data Available Weights: Last Updated 05/27/21 13:36 Initial Wt: 05/27 48.0 kg 106 lb Studies (relevant to the procedure): MRI that was done back in August of this year is reviewed. Patient has a full-thickness rotator cuff tear with retraction of the glenoid as well as fluid within the subdeltoid space. X-rays of the patient's right shoulder show glenohumeral osteoarthritis CT scan results are pending Admission Exam Per Admitting Provider Physical Exam: (relevant to the procedure, including heart and lung evaluation) General: Alert and oriented x3 with proper grooming and hygiene Eyes: Pupils are equal and reactive to light with accommodation. Extraocular movements are intact Throat: Deferred due to COVID-19 precautions Cardiac: Regular rate and rhythm with no murmurs or gallops appreciated Lungs: Clear to auscultation throughout with no wheezing, rales or rhonchi Abdomen: Nonobese, nondistended, nontender with NABS Extremities: Right shoulder; forward flexion and abduction are limited to 80 degrees. Flexed elbow external rotation 0 degrees. Palpable crepitation with passive range of motion. Positive crossarm test. Referred pain with abducting internal and external rotation. Positive subscapularis liftoff test. Significant weakness with applied resistance while forward flexing or AB drafting. Patient is neurovascular intact in right upper extremity Neuro: Cranial nerves II through XII are intact no motor or sensory deficit Skin: Normal in appearance with no open skin areas or discharge Principal Diagnosis Right shoulder osteoarthritis Discharge Exam Right shoulder; postoperative dressings are clean dry and intact. Drain has a scant amount of bloody drainage. The drain was removed and a sterile 4 x 4 and Tegaderm were placed over the puncture site. Patient is able to reach terminal flexion extension in her right elbow. She has full range of motion of her wrist. Appropriate dexterity of her fingers. She is able to make complete fist. She is able to detect light sensation to touch over the pads of all digits. Peripheral pulses are 2+. Capillary fill is less than 2 seconds.Passive forward flexion of her shoulder to 45 degrees and abduction to 45 degrees causes no discomfort or pain. Discharge Data Allergies Allergy/AdvReac Type Severity Reaction Status Date / Time hydromorphone AdvReac Intermediate "Knocked Verified 06/19/21 08:27 me out" morphine AdvReac Intermediate "Knocked Verified 06/19/21 08:27 me out" adhesive tape AdvReac Mild Skin Verified 06/19/21 08:27 redness Procedures Performed Operation Date: 06/19/21 09:10 Actual Procedures p Right Reverse Total Shoulder Arthroplasty(Right) - Juan Ramon Gonzalez MD Ordered Studies 06/19/21 05:00 US - OR guided needle placemen Routine Hospital Course (1) S/p reverse total shoulder arthroplasty: Patient had an uneventful overnight stay following right reverse shoulder arthroplasty. She is doing very well today and anxious to be discharged home. We will plan on in-home physical therapy for the first 2 weeks postoperatively. At her 2-week follow-up we will implement outpatient physical therapy. PT/OT Ice with easy wrap Arm sling Pain control p.o. medication DVT prophylaxis with WILDA stockings and aspirin In-home PT for the first 2 weeks postoperatively Follow-up with [facility] orthopedics as previously scheduled. With questions contact our clinic at [phone] Total Time Total Time Spent Total Time Spent (In Minutes): 20 minutes Discharge Plan Discharge Items Reason For Visit: Right Shoulder Arthropathy Discharge Diagnosis: Right Shoulder Arthropathy Activity: As commented below Bathing: Keep incision dry Bathing Comment: May shower tomorrow Sexual Activity: Wait until after follow-up appointment Exercise/Sports: Wait until after follow-up appointment Weightbearing Comment: Nothing heavier than coffee cup Non-emergency contact: Surgeon Call non-emergency contact if: you have any medication questions, your temperature is above 101.5, your wound has increased drainage and your wound pain has increased Follow-up/Referrals: Erin Ho, [Primary Care Provider] - Diet: Regular Addtl Attending Provider Instructions: Post-operative Instructions Dear Patient and Family/Friends, Before you are discharged from the hospital, it is important to know what to expect when you get home after surgery. To that end, we have created this sheet of discharge instructions which covers many commonly asked questions. Make sure you go through this sheet in its entirety with your nurse before you are discharged. Please note that we will go over the specifics of your surgery and recovery when you return for your first post-operative visit. Sincerely, Dr. Gonzalez Medications 1. Aspirin 81 mg: Take 1 tab twice daily for the first 30 days postoperatively for blood clot prevention. 2. Oxycodone 5 mg: Take 1-2 tabs every 4-6 hours As needed for postoperative pain control. A prescription for 30 tablets will be sent to your pharmacy. 3. Extra strength Tylenol 500 mg: Take 2 tablets every 6-8 hours as needed for additional pain control. 4. Diclofenac sodium 50 mg: Take 1 tab twice daily for the first 30 days postoperatively for pain and inflammation relief. A prescription for this medication will be sent to your pharmacy. Pain Expect to be in a fair amount of pain after surgery. Remember, our goal is not to eliminate your pain, but to make it tolerable. It is a good idea to stay ahead of your pain by taking the medications you were prescribed once you get home. Typically, the pain starts improving 3-7 days after surgery. You should start weaning off the narcotic pain medication (oxycodone, hydrocodone, hydromorphone, morphine) as soon as your pain improves. Please call our office if your pain is not adequately controlled. Ice Ice your operative site at least 5 times a day for 15-30 minutes at a time. Make sure you have a thin cloth between the ice or cooling unit and your skin to prevent mustafa bite. This is especially important if you received a nerve block. Continue icing your operative site for the first 5-7 days after surgery, then as needed. Diet/Nausea/Vomiting Start by drinking clear liquids and eating crackers. If you can tolerate this, then you may resume your normal diet. If you feel nauseated or vomit, take Zofran/ondansetron (if prescribed). Please call our office if you have intractable nausea or vomiting, or, if after hours, you may go to the Emergency Room for help. Constipation Constipation is a common side effect of narcotic pain medication. If you have not had a bowel movement within 2 days after surgery, we recommend purchasing an over the counter laxative such as Milk of Magnesia, Dulcolax, or Miralax from a local pharmacy, and taking it as instructed. Call our clinic if any questions. Slings and Braces If you were placed in a sling or brace, it must be worn at all times, including sleep. You may remove your sling or brace for physical therapy, home exercises, and showering. The length of time you will be in your brace and range of motion restrictions depends on what surgery you had; these details will be reviewed at your first post-operative appointment. Nerve block The anesthesia team sometimes places a nerve block to help with post-operative pain control. This results in significant numbness and inability to move the extremity. The nerve block usually wears off in 8-12 hours, but sometimes can last up to 24 hours. Please call our office if you are still unable to move your extremity after 24 hours, unless you received a pain pump to take home. Nerve blocks typically wear off quickly, so start taking pain medication as soon as you start feeling soreness near your surgical site. Weight bearing and Range of Motion. Do not bear any weight through your operative extremity immediately after surgery. If you had upper extremity surgery, do not lift anything with that arm. If you are in a knee brace, keep it locked in place until your follow-up. We will discuss your weight bearing, range of motion, and lifting restrictions in detail at your first post-operative appointment. Continuous Passive Motion (CPM) Machine If you were prescribed a CPM machine, it will start after your first post- operative appointment, at which time we will give you instructions on the range of motion settings and duration of treatment Physical therapy You will be given a prescription for physical therapy or occupational therapy at your first post-operative appointment. Typically, patients start therapy within 1 week of surgery Wound care and showering We will inspect your wound at your first post-operative visit, and may do a dressing change at that time. Most patients will be in a water-proof dressing that is removed 14 days after surgery. It is normal to see some dried blood on the dressing. Do not remove your dressing, paper strips or sutures yourself unless you are given permission. Showering is allowed the day after surgery. Do not scrub or remove any dressings. The wound should not be submerged underwater (i.e. in a bathtub or pool) until 4 weeks after surgery WILDA stockings If you were given white stockings, these are to be worn at all times except to shower (on both legs) for the first 2 weeks after surgery. Driving You may not drive while taking narcotic pain medication or while in a cast, splint, sling or brace. You, the patient, need to make the final determination about when you are safe to drive, however, the earliest you may consider driving after surgery is below: Hand/Wrist/Elbow Surgery: 3 days Shoulder Surgery: 2 weeks Hip,/Knee/Ankle Surgery: 4 weeks Fracture repair: 6 weeks Return to Work Your return to work depends on what surgery was done and what type of work you do. Please bring any paperwork your employer needs completed to your first post-operative visit. Also, bring a description of your job duties, as this helps us to understand what risks you may face at work. Travel Avoid long distance travel (greater than 1 hour) in airplanes and cars for the first 6 weeks after surgery. If you must travel, you need to have a Doppler ultrasound done before you travel to rule out a blood clot in your legs. Follow-up You should have a follow-up appointment already scheduled 1-2 days after surgery. If not, please contact our office to make this appointment before you leave the hospital. When to call the office It is normal to have swelling and bruising in the limb that was operated on. This will improve with time. It is also normal to have fevers for the first 2 days after surgery. Reasons you should call your doctor include: Uncontrolled pain; Nausea, vomiting, or constipation that does not improve with medication; Fevers over 101.5, chills, sweats; Drainage or bleeding from the wound; Foul odor; Spreading areas of redness; Any other concerns Pending Studies at Discharge: No Stand-Alone Forms: [facility] Medications and DC Order Prescriptions: New oxycodone 5 mg tablet 5 mg PO Q4H Qty: 30 RF: 0 diclofenac sodium 50 mg tablet,delayed release (DR/EC) 50 mg PO BID Qty: 60 RF: 1 Continued trospium 60 mg capsule,extended release 24hr 60 mg PO HS Qty: 90 RF: 1 multivitamin Tablet 1 tab PO QAM RF: 0 ascorbic acid (vitamin C) [Vitamin C] 1,000 mg Tablet 1,000 mg PO BID RF: 0 alendronate [Fosamax] 70 mg Tablet 70 mg PO WK RF: 0 simvastatin [Zocor] 20 mg Tablet 20 mg PO HS RF: 0 Restasis 0.05 % Dropperette 1 drp OPHTHALMIC (EYE) QAM RF: 0 Heathers Tummy Break 1 dose PO BID RF: 0 amitriptyline 10 mg Tablet 10 mg PO HS RF: 0 zinc 50 mg Tablet 50 mg PO QAM RF: 0 calcium-mag oxide-vitamin D3 250-125-200 mg-mg-unit Capsule 1 cap PO QAM RF: 0 cholecalciferol (vitamin D3) [Vitamin D3] 25 mcg (1,000 unit) Tablet 25 mcg PO QAM RF: 0 Macular Health Formula 5-1-7.5 mg Capsule 1 cap PO QAM RF: 0 biotin 5,000 mcg Tablet, Sublingual 5,000 mcg SUBLINGUAL QAM RF: 0 acetaminophen [Acetaminophen Extra Strength] 500 mg Tablet 500 mg PO Q6H PRN (Reason: Pain) RF: 0 Admission Data Admit Date/Time: 06/19/21 12:08 Attending Provider: Juan Ramon Gonzalez Admit Provider: Juan Ramon Gonzalez Primary Care Provider: Erin Ho
[2021-06-23] MEDS ORDERED: ALENDRONATE SODIUM 70 MG TAB PO SCH (06:30)
== END 2021-06-20 11:44 | disposition home health service (06) ==
LOC: ASU 07:46 → INTOOBSV 12:08 → 2N 12:08